=== PATIENT | female | born 2000 | race American Indian/Alaskan Native ===

== ENCOUNTER 2021-01-11 02:47 | Observation (INO) ==
[2021-01-11] MEDS ORDERED: SODIUM CHLORIDE 0.9% 1000ML 1,000 ML IV ONE ×2 (03:09→06:37)
[2021-01-11] MEDS ORDERED: ONDANSETRON INJ 2 MG/ML 2 ML VIAL IV STA (03:40)
[2021-01-11 04:16] LABS: Alanine Aminotransferase 30 U/L (12-78); Albumin Level 4.2 gm/dl (3.4-5.0); Aspartate Aminotransferase 25 U/L (15-37); BUN Creatinine Ratio 17.1 (10-20); Blood Urea Nitrogen 14 mg/dl (7-18); Calcium 8.4 mg/dl (8.5-10.1); Carbon Dioxide 23 mmol/L (21-32); Chloride 114 mmol/L (98-107); Est GFR (African American) 125.8; Est GFR (Non-African American) 108.5; Glucose 154 mg/dl (70-99); Potassium 3.6 mmol/L (3.5-5.1); Sodium 144 mmol/L (136-145)
[2021-01-11 04:19] LABS: Albumin Globulin Ratio 1.1 (0.9-2); Alkaline Phosphatase 140 U/L (45-117); Bilirubin,Total 0.2 mg/dl (0.2-1); Globulin 3.9 gm/dl (2.5-4.0); Total Protein 8.1 gm/dl (6.4-8.2)
[2021-01-11 04:49] LABS: Basophils # (auto) 0.04 K/uL (0-0.2); Basophils % (auto) 0.5 %; Eosinophils # (auto) 0.01 K/uL (0-0.5); Eosinophils % (auto) 0.1 %; Hematocrit (blood only) 41.7 % (37-47); Hemoglobin 14.3 g/dL (12.0-16.0); Immature Granulocytes # (auto) 0.02 K/uL (0.00-0.02); Immature Granulocytes % (auto) 0.3 %; Lymphocytes # (auto) 2.03 K/uL (1.2-3.4); Lymphocytes % (auto) 27.3 %; Mean Corpuscular Hemoglobin 30.8 pg (25-34); Mean Corpuscular Hgb Conc 34.3 g/dL (32-36); Mean Corpuscular Volume 89.7 fL (80-100); Mean Platelet Volume 9.6 fL (7.4-10.4); Monocytes # (auto) 0.26 K/uL (0.11-0.59); Monocytes % (auto) 3.5 %; Neutrophils # (auto) 5.07 K/uL (1.4-6.5); Neutrophils % (auto) 68.3 %; Platelet Count 408 K/uL (130-400); RDW Coefficient of Variation 12.2 % (11.5-14.5); Red Blood Count 4.65 M/uL (4.2-5.4); White Blood Count 7.43 K/uL (4.8-10.8)
[2021-01-11 05:07] LABS: Amphetamines+Metham, Urine Neg (Neg); Barbiturates, Urine Neg (Neg); Benzodiazepine, Urine Neg (Neg); Cocaine, Urine Neg (Neg); MDMA (Ecstacy), Urine Neg (Neg); Methadone, Urine Neg (Neg); Opiate, Urine Neg (Neg); Phencyclidine, Urine Neg (Neg)
--- NOTE | 2021-01-11 05:40 | Emergency Department Note ---
Impression & Plan Acute alteration in mental status, Alcohol intoxication, Hypoglycemia ED Provider Note NAME: LORE CHARLTON AGE: 20 SEX: F ARRIVES VIA: Ambulance INFORMANT: Patient, the patient's roommate ED PROVIDER(S): Talya Box DO CHIEF COMPLAINT: Alcohol intoxication and hypoglycemia PLAN: Disposition: [facility] Condition: Stable MEDICAL DECISION MAKING: This is a 20-year-old female patient brought to the emergency department after consuming too much alcohol. The patient had an episode of hypoglycemia as she is a diabetic. Her roommate noted her sugar to be less than 40. She was encouraged to drink apple juice and the sugar was rechecked and found to be 240. However, the patient remained confused with an altered mental status and was not recognizing people. EMS was called and she was transported here. Patient's alcohol was 144. CT scan of the brain was unremarkable. Patient remained with an altered mental status and had intermittent episodes of unresponsiveness and tachycardia. I discussed the case with the [facility] hospitalist and they will evaluate for further management. Triage Nursing notes reviewed and agree them. Additional history obtained from EMS and the patient's roommate Vital Signs: reviewed and remarkable for tachycardia Differential diagnosis: DKA, seizure, drug intoxication, hypoglycemia, head injury, alcohol overdose ER treatment provided: IV normal saline Diagnostics interpreted by me: Cardiac Monitoring: Sinus tachycardia at 106 Laboratory studies: See below Imaging studies: As per stat rad CT head: No acute intracranial hemorrhage, edema or mass. No extra-axial fluid colle ction. No calvarial fracture. Mild chronic sinus disease. Orbits and mastoids are unremarkable. Cerumen in the right external auditory canal HPI: 20/F arrives for evaluation of alcohol intoxication and hypoglycemia. The patient had been out drinking wine with her friends gee. The patient is a diabetic. Upon arriving home, her friend was notified by her glucose monitor that her BSG was low. They encouraged the patient to drink apple juice. After doing so, she rechecked her blood sugar and it was 240. The friend became concerned that the blood sugar was low and now has become elevated. EMS was called and she was transported here. For EMS, the patient's blood sugar was 209. On arrival here in the emergency department it was 200. When I questioned the patient about the events of the evening, she simply states that she drank wine because she is on a liquid diet and she is upset because her friend made her eat food that is not good for her when they were downtown. She would not give any other details besides this. ROS: See above HPI for pertinent positives & negatives. A total of 10 systems reviewed and were otherwise negative. 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 She lives with roommates. HOME MEDICATIONS:Insulin ALLERGIES:Patient cannot remember VITALS:See Below PHYSICAL EXAMINATION: HEENT: Head - normocephalic and atraumatic Pupils are equal, round, and reactive to light. Extraocular eye muscles are intact, and sclera are anicteric. Nose - moist nasal mucosa without discharge. Mouth - moist buccal mucosa. Oropharynx is nonerythematous and there is no tonsillar exudate or edema noted. Neck: Supple; no thyromegaly or cervical lymphadenopathy Heart: Tachycardic rate and regular rhythm. There is a normal S1 and S2 with no murmurs, clicks, or gallops appreciated. Lungs: Clear to auscultation bilaterally with no wheezes, rales, or rhonchi. Abdomen: Soft, completely nontender, nondistended, with good bowel sounds. There are no palpable pulsatile masses or hepatosplenomegaly. There is no guarding, rigidity, or rebound noted. Extremities: No evidence of cyanosis, clubbing, or edema. There are easily palpable peripheral pulses. Skin: warm and dry with good turgor and no rashes. The patient's face is quite flushed and red ED COURSE: Times/Reassessments: 0250: Patient was evaluated in room a 12. A complete history and physical was performed. The patient was placed in the prone position to avoid aspiration. Order was placed for continuous cardiac monitoring. Patient was in a sinus tachycardia at 112. An IV lock was initiated and labs were drawn as above. The patient was bolused with 1 L of normal saline solution. The BSG will be checked every 30 minutes 0345: The patient was reevaluated at this time and was resting comfortably. Vitals were stable. 0430: I discussed the case with the patient's roommate who is now at the bedside. It seems that the patient does not recognize who the roommate is and this is quite alarming. The roommate was able to give a more detailed history of what happened this evening. She explains that the patient had been out drinking with a friend and when she returned home it seemed that she had an altered mental status. She was unable to recognize friends and her roommate. This alarmed the roommate and the roommate alerted the RA who then called 911. After this, they checked her blood sugar and found it to be low. Once they corrected h er blood sugar, she still did not recognize them. The roommate does confirm that the patient is supposed to be on all liquid diet because of a GI issue. Patient will go for CT scan of the brain to rule out any acute intracranial process. We will also collect a urine drug screen. The patient went on to have an episode of tachycardia and hypotension and appeared to be somewhat asleep in the bed. I could easily arouse her at that time but she stated that she felt unwell but could not further elaborate on her symptoms. At that time, she was still unable to recognize her roommate. She was able to give some more specific details about the events of the evening and could answer some more in-depth questions but still could not give some simple answers to questions that she should know the answers to. I recommended inpatient admission to the [facility] hospital[facility]. The patient was evaluated by Dr. Santana and at that time was refusing inpatient care. 0800:Dr. Santana and myself both spoke with the patient together with the roommate present. We reviewed all of our concerns with the patient and the roommate. The patient seemed to understand our concerns and decided that it wo uld be the responsible thing to contact her parents to discuss the ED visit. Mother agreed that the patient should stay in the hospital for additional work- up. Talya Box, Past Med/Surg History Medical History Diabetes mellitus type 1 Gastroparesis Family History Other No pertinent family history Social History Smoking Status: Never smoker Hx Alcohol Use: Yes Alcohol type: hard liquor Hx Substance Use: No Preferred Language: Bangladeshi Communication Ability: Effective Pigs Feet Cleaner Required: No Beliefs That Will Affect Care: None Current Living Situation: Other Current Living Situation Comment: dorm at [employer] Feels Safe at Home: Yes Assistive Devices: None Allergies Allergies Allergy/AdvReac Type Severity Reaction Status Date / Time Unable to Assess Allergy Verified 01/11/21 07:41 Home Meds Home Medications Medication Instructions Recorded Confirmed Lantus Solostar U-100 Insulin 6 unit SUBCUT DAILY 01/11/21 01/11/21 erythromycin 0 mg PO ACHS 01/11/21 01/11/21 insulin lispro [Humalog Moshe 2.5 unit SUBCUT TIDM 01/11/21 01/11/21 KwikPen U-100] Results & Data (ED) Vital Signs Vital Signs - 24 hr 01/11/21 07:30 01/11/21 08:00 01/11/21 08:30 Pulse Rate 116 H 108 H Pulse Rate from SpO2 Sensor 116 H 116 H 108 H Respiratory Rate 12 22 Blood Pressure 137/79 142/97 H 130/81 Blood Pressure Mean 98 112 97 Pulse Oximetry 98 96 96 01/11/21 09:00 01/11/21 09:30 01/11/21 10:00 Pulse Rate 101 H 115 H 108 H Pulse Rate from SpO2 Sensor 99 H 116 H 111 H Respiratory Rate 27 H 14 20 Blood Pressure 113/71 123/80 127/79 Blood Pressure Mean 85 94 95 Pulse Oximetry 95 97 96 01/11/21 10:30 Pulse Rate 103 H Pulse Rate from SpO2 Sensor 105 H Respiratory Rate 12 Blood Pressure 126/85 Blood Pressure Mean 98 Pulse Oximetry 95 Laboratory Data Result diagrams: 01/11/21 03:32 01/11/21 03:29 Lab Results 01/11/21 01/11/21 01/11/21 Range/Units 02:54 03:29 03:29 WBC (4.8-10.8) K/uL RBC (4.2-5.4) M/uL Hgb (12.0-16.0) g/dL Hct (37-47) % MCV (80-100) fL MCH (25-34) pg MCHC (32-36) g/dL RDW Std Deviation (36.4-46.3) fL RDW Coeff of Josefina (11.5-14.5) % Plt Count (130-400) K/uL MPV (7.4-10.4) fL Immature Gran % (Auto) % Neut % (Auto) % Lymph % (Auto) % Vernon % (Auto) % Eos % (Auto) % Baso % (Auto) % Neut # (Auto) (1.4-6.5) K/uL Lymph # (Auto) (1.2-3.4) K/uL Vernon # (Auto) (0.11-0.59) K/uL Eos # (Auto) (0-0.5) K/uL Baso # (Auto) (0-0.2) K/uL Immature Gran # (Auto) (0.00-0.02) K/uL D-Dimer (0-500) ug/L FEU VBG pH (7.36-7.41) VBG pCO2 (38-50) mmHg VBG pO2 mmHg VBG HCO3 mmol/L VBG O2 Saturation % VBG Base Excess mEq/L Barometric Pressure mm/Hg Sodium 144 (136-145) mmol/L Potassium 3.6 (3.5-5.1) mmol/L Chloride 114 H (98-107) mmol/L Carbon Dioxide 23 (21-32) mmol/L Anion Gap 7.0 (3-11) BUN 14 (7-18) mg/dl Creatinine 0.79 (0.6-1.2) mg/dl Est Cr Clr Drug Dosing Not Reportable Est GFR ( Amer) 125.8 Est GFR (Non-Af Amer) 108.5 BUN/Creatinine Ratio 17.1 (10-20) Glucose 154 H (70-99) mg/dl POC Glucose 200 H (70-99) mg/dl Lactate (0.4-2.0) mmol/L Calcium 8.4 L (8.5-10.1) mg/dl Total Bilirubin 0.2 (0.2-1) mg/dl AST 25 (15-37) U/L ALT 30 (12-78) U/L Alkaline Phosphatase 140 H (45-117) U/L Total Protein 8.1 (6.4-8.2) gm/dl Albumin 4.2 (3.4-5.0) gm/dl Globulin 3.9 (2.5-4.0) gm/dl Albumin/Globulin Ratio 1.1 (0.9-2) Prolactin ng/ml HCG, Qual (Negative) Salicylates (2.8-20) mg/dl Urine Opiates Screen (Neg) Ur Methadone, Qual (Neg) Acetaminophen (10-30) ug/ml Urine Barbiturates (Neg) Ur Phencyclidine (PCP) (Neg) U Amphetamin/Meth Scrn (Neg) MDMA (Ecstasy) Screen (Neg) U Benzodiazepines Scrn (Neg) Ur Cocaine Metabolite (Neg) U Marijuana (THC) Screen (Neg) Ethyl Alcohol mg/dL 144.0 H (0-3) mg/dl COVID-19 Eval Order SARS-CoV-2, RNA, NAAT (NEGATIVE) 01/11/21 01/11/21 01/11/21 Range/Units 03:30 03:32 03:32 WBC 7.43 (4.8-10.8) K/uL RBC 4.65 (4.2-5.4) M/uL Hgb 14.3 (12.0-16.0) g/dL Hct 41.7 (37-47) % MCV 89.7 (80-100) fL MCH 30.8 (25-34) pg MCHC 34.3 (32-36) g/dL RDW Std Deviation 39.0 (36.4-46.3) fL RDW Coeff of Josefina 12.2 (11.5-14.5) % Plt Count 408 H (130-400) K/uL MPV 9.6 (7.4-10.4) fL Immature Gran % (Auto) 0.3 % Neut % (Auto) 68.3 % Lymph % (Auto) 27.3 % Vernon % (Auto) 3.5 % Eos % (Auto) 0.1 % Baso % (Auto) 0.5 % Neut # (Auto) 5.07 (1.4-6.5) K/uL Lymph # (Auto) 2.03 (1.2-3.4) K/uL Vernon # (Auto) 0.26 (0.11-0.59) K/uL Eos # (Auto) 0.01 (0-0.5) K/uL Baso # (Auto) 0.04 (0-0.2) K/uL Immature Gran # (Auto) 0.02 (0.00-0.02) K/uL D-Dimer < 190 (0-500) ug/L FEU VBG pH (7.36-7.41) VBG pCO2 (38-50) mmHg VBG pO2 mmHg VBG HCO3 mmol/L VBG O2 Saturation % VBG Base Excess mEq/L Barometric Pressure mm/Hg Sodium (136-145) mmol/L Potassium (3.5-5.1) mmol/L Chloride (98-107) mmol/L Carbon Dioxide (21-32) mmol/L Anion Gap (3-11) BUN (7-18) mg/dl Creatinine (0.6-1.2) mg/dl Est Cr Clr Drug Dosing Est GFR ( Amer) Est GFR (Non-Af Amer) BUN/Creatinine Ratio (10-20) Glucose (70-99) mg/dl POC Glucose 160 H (70-99) mg/dl Lactate (0.4-2.0) mmol/L Calcium (8.5-10.1) mg/dl Total Bilirubin (0.2-1) mg/dl AST (15-37) U/L ALT (12-78) U/L Alkaline Phosphatase (45-117) U/L Total Protein (6.4-8.2) gm/dl Albumin (3.4-5.0) gm/dl Globulin (2.5-4.0) gm/dl Albumin/Globulin Ratio (0.9-2) Prolactin ng/ml HCG, Qual (Negative) Salicylates (2.8-20) mg/dl Urine Opiates Screen (Neg) Ur Methadone, Qual (Neg) Acetaminophen (10-30) ug/ml Urine Barbiturates (Neg) Ur Phencyclidine (PCP) (Neg) U Amphetamin/Meth Scrn (Neg) MDMA (Ecstasy) Screen (Neg) U Benzodiazepines Scrn (Neg) Ur Cocaine Metabolite (Neg) U Marijuana (THC) Screen (Neg) Ethyl Alcohol mg/dL (0-3) mg/dl COVID-19 Eval Order SARS-CoV-2, RNA, NAAT (NEGATIVE) 01/11/21 01/11/21 01/11/21 Range/Units 03:32 03:32 04:02 WBC (4.8-10.8) K/uL RBC (4.2-5.4) M/uL Hgb (12.0-16.0) g/dL Hct (37-47) % MCV (80-100) fL MCH (25-34) pg MCHC (32-36) g/dL RDW Std Deviation (36.4-46.3) fL RDW Coeff of Josefina (11.5-14.5) % Plt Count (130-400) K/uL MPV (7.4-10.4) fL Immature Gran % (Auto) % Neut % (Auto) % Lymph % (Auto) % Vernon % (Auto) % Eos % (Auto) % Baso % (Auto) % Neut # (Auto) (1.4-6.5) K/uL Lymph # (Auto) (1.2-3.4) K/uL Vernon # (Auto) (0.11-0.59) K/uL Eos # (Auto) (0-0.5) K/uL Baso # (Auto) (0-0.2) K/uL Immature Gran # (Auto) (0.00-0.02) K/uL D-Dimer (0-500) ug/L FEU VBG pH (7.36-7.41) VBG pCO2 (38-50) mmHg VBG pO2 mmHg VBG HCO3 mmol/L VBG O2 Saturation % VBG Base Excess mEq/L Barometric Pressure mm/Hg Sodium (136-145) mmol/L Potassium (3.5-5.1) mmol/L Chloride (98-107) mmol/L Carbon Dioxide (21-32) mmol/L Anion Gap (3-11) BUN (7-18) mg/dl Creatinine (0.6-1.2) mg/dl Est Cr Clr Drug Dosing Est GFR ( Amer) Est GFR (Non-Af Amer) BUN/Creatinine Ratio (10-20) Glucose (70-99) mg/dl POC Glucose 165 H (70-99) mg/dl Lactate (0.4-2.0) mmol/L Calcium (8.5-10.1) mg/dl Total Bilirubin (0.2-1) mg/dl AST (15-37) U/L ALT (12-78) U/L Alkaline Phosphatase (45-117) U/L Total Protein (6.4-8.2) gm/dl Albumin (3.4-5.0) gm/dl Globulin (2.5-4.0) gm/dl Albumin/Globulin Ratio (0.9-2) Prolactin 12.33 ng/ml HCG, Qual Negative (Negative) Salicylates (2.8-20) mg/dl Urine Opiates Screen (Neg) Ur Methadone, Qual (Neg) Acetaminophen (10-30) ug/ml Urine Barbiturates (Neg) Ur Phencyclidine (PCP) (Neg) U Amphetamin/Meth Scrn (Neg) MDMA (Ecstasy) Screen (Neg) U Benzodiazepines Scrn (Neg) Ur Cocaine Metabolite (Neg) U Marijuana (THC) Screen (Neg) Ethyl Alcohol mg/dL (0-3) mg/dl COVID-19 Eval Order SARS-CoV-2, RNA, NAAT (NEGATIVE) 01/11/21 01/11/21 01/11/21 Range/Units 04:35 04:40 06:38 WBC (4.8-10.8) K/uL RBC (4.2-5.4) M/uL Hgb (12.0-16.0) g/dL Hct (37-47) % MCV (80-100) fL MCH (25-34) pg MCHC (32-36) g/dL RDW Std Deviation (36.4-46.3) fL RDW Coeff of Josefina (11.5-14.5) % Plt Count (130-400) K/uL MPV (7.4-10.4) fL Immature Gran % (Auto) % Neut % (Auto) % Lymph % (Auto) % Vernon % (Auto) % Eos % (Auto) % Baso % (Auto) % Neut # (Auto) (1.4-6.5) K/uL Lymph # (Auto) (1.2-3.4) K/uL Vernon # (Auto) (0.11-0.59) K/uL Eos # (Auto) (0-0.5) K/uL Baso # (Auto) (0-0.2) K/uL Immature Gran # (Auto) (0.00-0.02) K/uL D-Dimer (0-500) ug/L FEU VBG pH (7.36-7.41) VBG pCO2 (38-50) mmHg VBG pO2 mmHg VBG HCO3 mmol/L VBG O2 Saturation % VBG Base Excess mEq/L Barometric Pressure mm/Hg Sodium (136-145) mmol/L Potassium (3.5-5.1) mmol/L Chloride (98-107) mmol/L Carbon Dioxide (21-32) mmol/L Anion Gap (3-11) BUN (7-18) mg/dl Creatinine (0.6-1.2) mg/dl Est Cr Clr Drug Dosing Est GFR ( Amer) Est GFR (Non-Af Amer) BUN/Creatinine Ratio (10-20) Glucose (70-99) mg/dl POC Glucose 167 H 195 H (70-99) mg/dl Lactate (0.4-2.0) mmol/L Calcium (8.5-10.1) mg/dl Total Bilirubin (0.2-1) mg/dl AST (15-37) U/L ALT (12-78) U/L Alkaline Phosphatase (45-117) U/L Total Protein (6.4-8.2) gm/dl Albumin (3.4-5.0) gm/dl Globulin (2.5-4.0) gm/dl Albumin/Globulin Ratio (0.9-2) Prolactin ng/ml HCG, Qual (Negative) Salicylates (2.8-20) mg/dl Urine Opiates Screen Neg (Neg) Ur Methadone, Qual Neg (Neg) Acetaminophen (10-30) ug/ml Urine Barbiturates Neg (Neg) Ur Phencyclidine (PCP) Neg (Neg) U Amphetamin/Meth Scrn Neg (Neg) MDMA (Ecstasy) Screen Neg (Neg) U Benzodiazepines Scrn Neg (Neg) Ur Cocaine Metabolite Neg (Neg) U Marijuana (THC) Screen Neg (Neg) Ethyl Alcohol mg/dL (0-3) mg/dl COVID-19 Eval Order SARS-CoV-2, RNA, NAAT (NEGATIVE) 01/11/21 01/11/21 01/11/21 Range/Units 06:52 07:16 07:16 WBC (4.8-10.8) K/uL RBC (4.2-5.4) M/uL Hgb (12.0-16.0) g/dL Hct (37-47) % MCV (80-100) fL MCH (25-34) pg MCHC (32-36) g/dL RDW Std Deviation (36.4-46.3) fL RDW Coeff of Josefina (11.5-14.5) % Plt Count (130-400) K/uL MPV (7.4-10.4) fL Immature Gran % (Auto) % Neut % (Auto) % Lymph % (Auto) % Vernon % (Auto) % Eos % (Auto) % Baso % (Auto) % Neut # (Auto) (1.4-6.5) K/uL Lymph # (Auto) (1.2-3.4) K/uL Vernon # (Auto) (0.11-0.59) K/uL Eos # (Auto) (0-0.5) K/uL Baso # (Auto) (0-0.2) K/uL Immature Gran # (Auto) (0.00-0.02) K/uL D-Dimer (0-500) ug/L FEU VBG pH (7.36-7.41) VBG pCO2 (38-50) mmHg VBG pO2 mmHg VBG HCO3 mmol/L VBG O2 Saturation % VBG Base Excess mEq/L Barometric Pressure mm/Hg Sodium (136-145) mmol/L Potassium (3.5-5.1) mmol/L Chloride (98-107) mmol/L Carbon Dioxide (21-32) mmol/L Anion Gap (3-11) BUN (7-18) mg/dl Creatinine (0.6-1.2) mg/dl Est Cr Clr Drug Dosing Est GFR ( Amer) Est GFR (Non-Af Amer) BUN/Creatinine Ratio (10-20) Glucose (70-99) mg/dl POC Glucose (70-99) mg/dl Lactate (0.4-2.0) mmol/L Calcium (8.5-10.1) mg/dl Total Bilirubin (0.2-1) mg/dl AST (15-37) U/L ALT (12-78) U/L Alkaline Phosphatase (45-117) U/L Total Protein (6.4-8.2) gm/dl Albumin (3.4-5.0) gm/dl Globulin (2.5-4.0) gm/dl Albumin/Globulin Ratio (0.9-2) Prolactin ng/ml HCG, Qual (Negative) Salicylates < 1.7 L (2.8-20) mg/dl Urine Opiates Screen (Neg) Ur Methadone, Qual (Neg) Acetaminophen < 2 L (10-30) ug/ml Urine Barbiturates (Neg) Ur Phencyclidine (PCP) (Neg) U Amphetamin/Meth Scrn (Neg) MDMA (Ecstasy) Screen (Neg) U Benzodiazepines Scrn (Neg) Ur Cocaine Metabolite (Neg) U Marijuana (THC) Screen (Neg) Ethyl Alcohol mg/dL (0-3) mg/dl COVID-19 Eval [facility] SARS-[facility]-2, RNA, NAAT NEGATIVE (NEGATIVE) 01/11/21 01/11/21 Range/Units 07:30 07:30 WBC (4.8-10.8) K/uL RBC (4.2-5.4) M/uL Hgb (12.0-16.0) g/dL Hct (37-47) % MCV (80-100) fL MCH (25-34) pg MCHC (32-36) g/dL RDW Std Deviation (36.4-46.3) fL RDW Coeff of Josefina (11.5-14.5) % Plt Count (130-400) K/uL MPV (7.4-10.4) fL Immature Gran % (Auto) % Neut % (Auto) % Lymph % (Auto) % Vernon % (Auto) % Eos % (Auto) % Baso % (Auto) % Neut # (Auto) (1.4-6.5) K/uL Lymph # (Auto) (1.2-3.4) K/uL Vernon # (Auto) (0.11-0.59) K/uL Eos # (Auto) (0-0.5) K/uL Baso # (Auto) (0-0.2) K/uL Immature Gran # (Auto) (0.00-0.02) K/uL D-Dimer (0-500) ug/L FEU VBG pH 7.41 (7.36-7.41) VBG pCO2 35 L (38-50) mmHg VBG pO2 51 mmHg VBG HCO3 22 mmol/L VBG O2 Saturation 84.0 % VBG Base Excess -2.0 mEq/L Barometric Pressure 729.1 mm/Hg Sodium (136-145) mmol/L Potassium (3.5-5.1) mmol/L Chloride (98-107) mmol/L Carbon Dioxide (21-32) mmol/L Anion Gap (3-11) BUN (7-18) mg/dl Creatinine (0.6-1.2) mg/dl Est Cr Clr Drug Dosing Est GFR ( Amer) Est GFR (Non-Af Amer) BUN/Creatinine Ratio (10-20) Glucose (70-99) mg/dl POC Glucose (70-99) mg/dl Lactate 1.7 (0.4-2.0) mmol/L Calcium (8.5-10.1) mg/dl Total Bilirubin (0.2-1) mg/dl AST (15-37) U/L ALT (12-78) U/L Alkaline Phosphatase (45-117) U/L Total Protein (6.4-8.2) gm/dl Albumin (3.4-5.0) gm/dl Globulin (2.5-4.0) gm/dl Albumin/Globulin Ratio (0.9-2) Prolactin ng/ml HCG, Qual (Negative) Salicylates (2.8-20) mg/dl Urine Opiates Screen (Neg) Ur Methadone, Qual (Neg) Acetaminophen (10-30) ug/ml Urine Barbiturates (Neg) Ur Phencyclidine (PCP) (Neg) U Amphetamin/Meth Scrn (Neg) MDMA (Ecstasy) Screen (Neg) U Benzodiazepines Scrn (Neg) Ur Cocaine Metabolite (Neg) U Marijuana (THC) Screen (Neg) Ethyl Alcohol mg/dL (0-3) mg/dl COVID-19 Eval Order SARS-CoV-2, RNA, NAAT (NEGATIVE) Administered Medications Discontinued Medications Gadobutrol (Gadobutrol 65ml Vial) 6 ml IV ONCE ONE Stop: 01/11/21 13:28 Last Admin: 01/11/21 13:27 Dose: 6 ml Documented by: [id number] Sodium Chloride (Nss 1000ml) 1,000 mls @ 999 mls/hr IV .Q1H1M ONE Stop: 01/11/21 04:09 Last Infusion: 01/11/21 04:43 Dose: 0 mls/hr Documented by: [id number] Admin: 01/11/21 03:36 Dose: 999 mls/hr Documented by: [id number] Sodium Chloride (Nss 1000ml) 1,000 mls @ 999 mls/hr IV .Q1H1M ONE Stop: 01/11/21 07:37 Last Infusion: 01/11/21 08:30 Dose: 0 mls/hr Documented by: [id number] Admin: 01/11/21 06:46 Dose: 999 mls/hr Documented by: [id number] Multivitamins 10 ml/ Thiamine HCl 100 mg/ Folic Acid 1 mg/Sodium Chloride 1,011.2 mls @ 1,011.2 mls/hr IV .Q1H ONE Stop: 01/11/21 13:44 Last Infusion: 01/11/21 15:04 Dose: 0 mls/hr Documented by: [id number] Admin: 01/11/21 14:00 Dose: 1,011.2 mls/hr Documented by: [id number] Insulin Glargine (Insulin Glargine Solostar 100 Units/Ml 3 Ml Pen) 6 units SC DAILY@1000 MARIO; Protocol Stop: 02/10/21 12:59 Last Admin: 01/11/21 14:13 Dose: 6 units Documented by: [id number] Cosigned by: [id number] Insulin Human Lispro (Insulin Human Lispro (Humalog) 100 Units/Ml Vial) 0 units SC ACHS MARIO; Protocol Stop: 02/10/21 12:59 Last Admin: 01/11/21 18:05 Dose: 2 units Documented by: [id number] Cosigned by: [id number] Admin: 01/11/21 14:48 Dose: 2 units Documented by: [id number] Cosigned by: [id number] Ondansetron HCl (Ondansetron Inj 2 Mg/Ml 2 Ml Vial) 4 mg IV NOW STA Stop: 01/11/21 03:41 Last Admin: 01/11/21 03:45 Dose: 4 mg Documented by: [id number] Discharge Plan Visit Data Chief Complaint: Alcohol Intoxication Stated Complaint: DIABETIC/ALCOHOL INTOXICATION ED Provider: Talya Box Discharge Problem: Acute alteration in mental status, Alcohol intoxication, Hypoglycemia Patient Disposition: Admitted As Inpatient Discharge Instructions Interventions: ED Discharge Assessment Last Done: 01/11/21 11:40 Discharge Problem: Alcohol intoxication Qualifiers: Complication of substance-induced condition: with delirium Qualified Code(s): F10.921 - Alcohol use, unspecified with intoxication delirium
--- NOTE | 2021-01-11 06:35 | CT Scan Report ---
CT OF THE HEAD WITHOUT CONTRAST CLINICAL HISTORY: Altered mental status. COMPARISON STUDY: No previous studies for comparison. CT DOSE: 614.27 mGy.cm TECHNIQUE: Helical axial images of the head were obtained without IV contrast. Automated exposure con trol was utilized for the study. A dose lowering technique was utilized adhering to the principles o f ALARA. FINDINGS: No acute intracranial hemorrhage, midline shift or mass effect is present. The ventricular system is unremarkable. The basal cisterns are patent. No extra-axial collections are present. There are no findings to suggest acute dural sinus thrombosis or acute territorial infarct. No significant calvarial abnormalities are present. There is mild ethmoid and maxillary sinus mucosal thickening. Po sterior right mastoid air cells are opacified. IMPRESSION: No acute intracranial findings. ACT 112: Negative or not required by law. Electronically signed by: Jax Weir M.D. 01/11/2021 6:34 AM
[2021-01-11 07:01] LABS: D Dimer < 190 ug/L FEU (0-500)
[2021-01-11 07:21] LABS: Pregnancy Test, Serum Negative (Negative)
[2021-01-11 07:26] LABS: Acetaminophen < 2 ug/ml (10-30); Salicylate < 1.7 mg/dl (2.8-20)
[2021-01-11 07:41] LABS: pH VBG 7.41 (7.36-7.41)
--- NOTE | 2021-01-11 10:42 | Pharmacy Report ---
Pharmacy Glycemic Short Note 2 - Date of Service January 11, 2021 - Glycemic Short BSG Results (Last 24 hours): 01/11/21 01/11/21 01/11/21 02:54 03:29 03:30 Glucose 154 H POC Glucose 200 H 160 H 01/11/21 01/11/21 01/11/21 04:02 04:35 06:38 Glucose POC Glucose 165 H 167 H 195 H OUTPATIENT ANTIDIABETIC REGIMEN: * Lantus 6 units SQ daily at 1000 * Humalog Moshe Pen bolus with meals per parameters below- uses a MAX of 2.5 units per bolus. Because this is her max dose she will sometimes bolus for high BSG and then recheck her BSG in 1-2hrs (via cgm or POC) and re-bolus again if BSG not decreasing. * SF= 50mg/dl/unit for BSGs above 140 mg/dl * Carb ratio = 1 unit for every 25g CHO consumed * Uses a Dexcom continuous glucose monitor (cgm)- last changed 2 days ago * Does not know her recent A1c - thinks it will be about 7.5-8% based on her dexcom average BSG ~ 179 mg/dl SUBJECTIVE: * Met with patient in ED room A12B this AM per the request of Dr Jus Santana. * Pt was diagnosed with Type 1 diabetes last Nov 2019. Had symptoms of increased hunger, thirst, and urination and saw her PCP who tested her for diabetes and sent her to the hospital. She was admitted for ~5 days for mild DKA and started on SQ basal bolus insulin regimen. She continued on this insulin regimen for about a month. She was able to come off of insulin from December 2019 - February 2020 during her honeymoon period. She restarted insulin in February and BSGs were well controlled over the summer. * Unfortunately patient got COVID in July 2020 and since then her BSGs have been elevated and erratic. * Pt sees both an custodial manager (unsure of their name - starts with a "Z") and a clinical social work therapist (unsure of their name) at [facility] in [place]. * Pt is being worked up for gastroparesis by outpatient GI. She has been eating a liquid diet (protein shakes) and bland "BRAT" diet (mostly rice, bread, bananas, etc) for the last week. Just added chicken to her diet a day or two ago. She takes erythromycin for gastroparesis but this was just started. Started at TID dosing and just increased to QID per GI earlier this week. * Pt typically has lows just prior to dinner. * Pt was out drinking wine with a friend last night. Did have a calzone late last evening so she is not sure why or how her BSG was LOW overnight. She thinks that she bolused 2 units last night with the calzone but doesn't remember that well. She said that she did throw up. Possible that she had hypo event from alcohol + bolusing and then throwing up. ASSESSMENT/RECOMMENDATIONS: * Recommend continuing cgm inpatient; however, patient will also need POC BSGs ACHS at a minimum. Pt is agreeable to this. * Recommend drawing A1c * Consider Shirt Folder consult (pt is agreeable to this) * Recommend Lantus 6 units Sq daily @ 1000 * Recommend Humalog (not NovoLog) ACHS per the following parameters * Goal range 100-140 mg/dl * CF = 50 mg/dl/unit * CR = 1 unit for every 25g CHO consumed. * If BSGs elevated; recommend giving 2 units of Humalog and re-checking BSG in 1-2 hrs. May re-bolus 1-2 units if BSGs not trending downwards. * We discussed using REGULAR insulin for meal time coverage as this is preferred with gastroparesis. However, didn't want to introduce anything new during this workup. *
[2021-01-11] MEDS ORDERED: DEXTROSE 50% 50 ML SYRINGE IV PRN (12:05)
[2021-01-11] MEDS ORDERED: GLUCOSE 40% GEL 15 GM TUBE PO PRN (12:05)
[2021-01-11] MEDS ORDERED: INSULIN ASPART 100 UNITS/ML 3 ML PEN SC SCH (12:05)
[2021-01-11] MEDS ORDERED: ONDANSETRON INJ 2 MG/ML 2 ML VIAL IV PRN (12:05)
[2021-01-11] MEDS ORDERED: GLUCOSE 10 TABS/TUBE PO PRN (12:05)
[2021-01-11] MEDS ORDERED: CARBOHYDRATES FOR HYPOGLYCEMIA PO PRN (12:05)
[2021-01-11] MEDS ORDERED: GLUCAGON FOR INJ 1 MG VIAL SQ PRN (12:05)
[2021-01-11] MEDS ORDERED: PHARMACY GLYCEMIC MGMT CONSULT PRN (12:24)
[2021-01-11] MEDS ORDERED: MULTI-VITAMIN INFUSION 10 ML, THIAMINE HCL 100 MG, FOLIC ACID 1 MG in SODIUM CHLORIDE 0... IV ONE (12:45)
[2021-01-11] MEDS ORDERED: INSULIN GLARGINE SOLOSTAR 100 UNITS/ML 3 ML PEN SC SCH (13:00)
[2021-01-11] MEDS ORDERED: GADOBUTROL 65ML VIAL IV ONE (13:27)
--- NOTE | 2021-01-11 13:38 | Magnetic Resonance Report ---
MRI OF THE BRAIN WITHOUT AND WITH IV CONTRAST CLINICAL HISTORY: Possible seizure CONFUSION, DIZZINESS. FILLING OF A HAZE. COMPARISON STUDY: CT scan dated 01/11/2021 TECHNIQUE: MRI of the brain was performed from the vertex to the skull base utilizing various T1 and T2 weighted sequences. Following the IV administration of 6 mL of Gadavist contrast, additional enhan asher images were obtained. FINDINGS: Sagittal T1, axial diffusion, proton density and T2 weighted axial, coronal FLAIR, and pre and post a xial T1-weighted images were acquired. These were supplemented with post gadolinium coronal T1 weight ed images. No intra or extra-axial mass lesions are visualized. Axial diffusion-weighted images reveal no evidence of acute or subacute infarction. There is no evidence of ventricular dilatation. Proton density T2-weighted and FLAIR images reveal no significant intraparenchymal signal abnormaliti es. There is a right mastoid effusion. Inflammatory changes are also visualized within the ethmoid fronta l and maxillary sinuses. Clinical formations appear symmetric. There are no abnormal flow voids. There is no evidence of pathologic enhancement. IMPRESSION: 1. Right mastoid effusion. Mild inflammatory changes within the frontal ethmoid and maxillary sinuses . 2. Otherwise normal MRI of the brain. No evidence of intracranial mass. No evidence of acute or subac david infarction ACT 112: Negative or not required by law. Electronically signed by: Dameon Suh M.D. 01/11/2021 1:37 PM
--- NOTE | 2021-01-11 14:20 | History & Physical Report ---
Date of Service January 11, 2021 Assessment & Plan (1) Metabolic encephalopathy: In the context of alcohol intake, low blood sugar overnight, and a possible substance ingestion at a green party. - Ddx includes: * Seizure or even simple encephalopathy due to low blood sugar * Possible substance ingestion at a green party - Concerning diagnoses such as meningitis/encephalitis are exceptionally unlikely given lack of fever, lack of leukocytosis, no nuchal rigidity or headache, and spontaneously improving symptoms. - Discussed with Dr. Box, and we do not have the ability to test for substances such as GBL. Our testable Utox was negative. - MRI w/ and w/o contrast ordered for seizure protocol - Monitor telemetry - Monitor mental status (2) Diabetes mellitus type 1: Diagnosed with Type I diabetes in 08/2020. - Seen by glycemic pharmacist in the ED. Insulin regimen to match home dosage. - A1c pending - Diabetic counselor consulted (3) Gastroparesis: Follows with [facility]. Presently I think this is a presumptive diagnosis. Was on a liquid diet for the last few weeks, but this included Ensure and Glucerna, so I do not think she should be vitamin deficient. - Will allow her to eat/drink whatever is comfortable - Ordered a banana bag as initial IV fluids - Encourage a MVI ongoing for iron, folate, and thiamine (4) DVT prophylaxis: SCDs - Low DVT risk per admission calculator Admission and Anticipated Discharge Date Admission Date: January 11, 2021 History of Present Illness Primary Care Provider: NO PCP 20yo F w/ hx of DM1 and possible gastroparesis who presents with altered mental status. The evening is a bit hazy, but the patient reports going out with some friends and then to a different green party. She shared a bottle of wine, then possibly had some more drinks at a green party at the house/residence of an unknown person. She is not sure what drinks she had, but reports she didn't drink a "crazy amount" which she equates to >10 shots. However, there is a chance she drank something that was an unsupervised drink at the green party. When she got back home, she had memory issues and didn't recognize her roommates whom she has lived with all year. She was also laughing inappropriately and just acting bizarrely. At some point, her continuous glucose monitor alarmed that her blood sugar was in the 40s. Her friends gave her some apple juice and manually recheck her blood sugar and it was in the ~100. When she continued to have trouble with her memory, her friends called 06-27-. In the ED, she continued to have memory issues and had an episode where her heart transiently went to 150, then went back to the 110s. Of note, she has been on a liquid diet for the last few weeks due to possible gastroparesis. She follows with [facility] GI who think she may need an EGD at some point. She recently has been on a BRAT diet with plain bread and recently added chicken as well. Allergies Allergy/AdvReac Type Severity Reaction Status Date / Time Unable to Assess Allergy Verified 01/11/21 07:41 Home Medications Medication Instructions Recorded Confirmed Type erythromycin 0 mg PO ACHS 01/11/21 01/11/21 History insulin glargine [Lantus Solostar 6 unit SUBCUT DAILY 01/11/21 01/11/21 History U-100 Insulin] insulin lispro [Humalog Moshe 2.5 unit SUBCUT TIDM 01/11/21 01/11/21 History KwikPen U-100] Past Med/Surg History Medical History Diabetes mellitus type 1 Gastroparesis Family History Other No pertinent family history Social History Smoking Status: Never smoker Hx Alcohol Use: Yes Alcohol type: hard liquor Hx Substance Use: No Preferred Language: Kiswahili Communication Ability: Effective Turfgrass Technician Required: No Beliefs That Will Affect Care: None Current Living Situation: Other Current Living Situation Comment: dorm at [facility] Other Information That Helps Us Care for You: No Feels Safe at Home: Yes Safety Concerns: Feels Safe At This Time Assistive Devices: None Review of Systems Review of Systems: All systems reviewed & are unremarkable except as noted in HPI & below Physical Exam Constitutional: WD/WN, vitals as above Eyes: EOM intact bilaterally; no conjunctival abnormality ENMT: external ear and nose normal, oropharynx normal Neck: trachea midline, no thyromegaly normal visual inspection Respiratory: normal respiratory effort, lungs clear to auscultation no respiratory distress Cardiovascular: RRR, no murmur, no edema Gastrointestinal (Abdomen): Inspection/Auscultation: abdomen normal to inspection; abdomen not distended Musculoskeletal: no cyanosis or clubbing, extremities motor strength 5/5 Skin: no rashes, warm and dry Neurologic: moves all extremities and awake Psychiatric: Orientation: alert, oriented to person and cooperative Speech: + abnormal rate/rhythm/volume of speech (Slow, halting speech) Results & Data Results & Data ([facility]) Vital Signs (Past 12 Hours) Vital Signs Temp Pulse Pulse Resp BP BP Pulse Ox 01/11/21 12:48 90 01/11/21 12:13 36.8 C 108 H 20 135/95 96 01/11/21 11:40 109 H 18 125/79 97 01/11/21 11:30 91 H 14 125/79 94 01/11/21 11:00 110 H 15 136/83 96 01/11/21 10:30 103 H 12 126/85 95 01/11/21 10:00 108 H 20 127/79 96 01/11/21 09:30 115 H 14 123/80 97 01/11/21 09:00 101 H 27 H 113/71 95 01/11/21 08:30 108 H 22 130/81 96 01/11/21 08:00 142/97 H 96 01/11/21 07:30 116 H 12 137/79 98 01/11/21 07:15 117 H 18 132/85 97 01/11/21 07:00 113 H 17 132/85 99 01/11/21 06:30 128/85 97 01/11/21 06:00 97/56 L 100 01/11/21 05:30 110/68 97 01/11/21 05:01 115 H 122/79 97 01/11/21 04:30 124 H 18 118/96 100 01/11/21 04:00 105 H 15 107/77 98 01/11/21 03:34 108 H 16 110/66 95 01/11/21 03:01 107 H 17 125/88 96 01/11/21 02:57 36.5 C 109 H 14 140/84 95 Code Status & VTE Plan VTE Prophylaxis Plan VTE Prophylaxis will be ordered: Yes PG Care Time/CCT Total # of Minutes Spent Total Time Spent with Patient: Total time spent is greater than 50% in coordination of care (as documented) at patient's floor/unit and/or counseling patient: Coding Level of Care Code 94474 OBS Care - Level 3 Diagnoses Metabolic encephalopathy G93.41 Diabetes mellitus type 1 E10.9 Gastroparesis K31.84 DVT prophylaxis Z29.9
[2021-01-11] MEDS: INSULIN HUMAN LISPRO (humaLOG) 100 UNITS/ML VIAL SC SCH ×2 (14:48→18:05)
--- NOTE | 2021-01-11 17:13 | Discharge Summary ---
Date of Service January 11, 2021 Admission HPI Per Admitting Provider 20yo F w/ hx of DM1 and possible gastroparesis who presents with altered mental status. The evening is a bit hazy, but the patient reports going out with some friends and then to a different alliance party. She shared a bottle of wine, then possibly had some more drinks at a alliance party at the house/residence of an unknown person. She is not sure what drinks she had, but reports she didn't drink a "crazy amount" which she equates to >10 shots. However, there is a chance she drank something that was an unsupervised drink at the alliance party. When she got back home, she had memory issues and didn't recognize her roommates whom she has lived with all year. She was also laughing inappropriately and just acting bizarrely. At some point, her continuous glucose monitor alarmed that her blood sugar was in the 40s. Her friends gave her some apple juice and manually recheck her blood sugar and it was in the ~100. When she continued to have trouble with her memory, her friends called 9--1. In the ED, she continued to have memory issues and had an episode where her heart transiently went to 150, then went back to the 110s. Of note, she has been on a liquid diet for the last few weeks due to possible gastroparesis. She follows with [facility] GI who think she may need an EGD at some point. She recently has been on a BRAT diet with plain bread and recently added chicken as well. Principal Diagnosis Altered mental status - Hypoglycemia vs. possible seizure vs. unknown substance ingestion Discharge Exam Constitutional WD/WN, vitals as above Eyes EOM intact bilaterally; no conjunctival abnormality ENMT external ear and nose normal, oropharynx normal Neck trachea midline, no thyromegaly normal visual inspection Respiratory normal respiratory effort, lungs clear to auscultation no respiratory distress Cardiovascular RRR, no murmur, no edema Gastrointestinal (Abdomen) Inspection/Auscultation: abdomen normal to inspection; abdomen not distended Musculoskeletal no cyanosis or clubbing, extremities motor strength 5/5 Skin no rashes, warm and dry Neurologic moves all extremities and awake Psychiatric Orientation: alert, oriented to person and cooperative Speech: normal rate/rhythm/volume of speech Discharge Data Allergies Allergy/AdvReac Type Severity Reaction Status Date / Time Unable to Assess Allergy Verified 01/11/21 07:41 Ordered Studies 01/11/21 04:40 CT head/brain wo con Urgent 01/11/21 12:05 MR brain seizure wo/w con Stat Hospital Course (1) Metabolic encephalopathy: In the context of alcohol intake, low blood sugar overnight, and a possible substance ingestion at a alliance party. - Ddx includes: * Seizure or even simple encephalopathy due to low blood sugar * Possible substance ingestion at a alliance party - Concerning diagnoses such as meningitis/encephalitis are exceptionally unlikely given lack of fever, lack of leukocytosis, no nuchal rigidity or headache, and spontaneously improving symptoms. - Discussed with Dr. Box, and we do not have the ability to test for hung bstances such as GBL. Our testable Utox was negative. - MRI w/ and w/o contrast ordered for seizure protocol -> This was normal apart from some sinusitis which she correlated with some stuffy nose, but no pain or fever. - Monitored telemetry -> Sinus in the 90s during her admission - Monitor mental status -> Improving throughout the day. On discharge, endorsed some "fuzziness," but had normal recall, normal speech, normal memory apart from scattered overnight. - I do not think EEG will be beneficial in this context. If she had a seizure, it was likely due to low blood sugar, and I would therefore suspect that her EEG would be normal now that her sugars have stabilized. If this were to happen again, certain raises the concern for a primary seizure disorder and would pursue. (2) Diabetes mellitus type 1: Diagnosed with Type I diabetes in 08/2020. - Seen by glycemic pharmacist in the ED. Insulin regimen to match home dosage. - Diabetic counselor consulted - Will return to normal DM regimen as outpatient and follow up with her [facility] physicians. (3) Gastroparesis: Follows with [facility] GI. Presently I think this is a presumptive diagnosis. Was on a liquid diet for the last few weeks, but this included Ensure and Glucerna, so I do not think she should be vitamin deficient. - Will allow her to eat/drink whatever is comfortable - Ordered a banana bag as initial IV fluids - Encourage a MVI ongoing for iron, folate, and thiamine (4) DVT prophylaxis: SCDs - Low DVT risk per admission calculator Total Time Total Time Spent Total Time Spent (In Minutes): 35 Discharge Plan Discharge Items Patient Disposition: Home - Self-Care Reason For Visit: AMS Discharge Diagnosis: Altered mental status Activity: Resume your previous activity Non-emergency contact: Primary Care Provider and Forest And Conservation Worker Call non-emergency contact if: your symptoms worsen Follow-up/Referrals: PCP,NO [Primary Care Provider] - Diet: Carb Count or DM1 Addtl Attending Provider Instructions: Ms. Lopez, You were admitted to the hospital when you had a period of altered mental status overnight. This happened in the context of being out and possibly consuming something that was put in a drink. We also think possibly some blood sugar fluctuations could have contributed. There was some concern that your blood sugar got as low as 40 (though this was not what your continuous glucose monitor showed). We did an MRI of your brain which did not show any concerning findings such as a mass or anything like that. Please have your friends stay with you the next 24- 48 hours to be sure you are back to your normal state of health. If something like this happens again, you need to return to the hospital or contact your primary care doctor right away. Pending Studies at Discharge: No Stand-Alone Forms: [facility], Smoking Cessation Medications and DC Order Prescriptions: Continued Lantus Solostar U-100 Insulin 100 unit/mL (3 mL) Insulin Pen 6 unit SUBCUT DAILY RF: 0 insulin lispro [Humalog Moshe KwikPen U-100] 100 unit/mL Insulin Pen, Half- Unit 2.5 unit SUBCUT TIDM RF: 0 erythromycin 250 mg Capsule,Delayed Release(Dr/Ec) 0 mg PO ACHS RF: 0 Discharge Orders: Discharge Order (Routine); Ordered 01/11/21 Ordered By: Dillon Santana Admission Data Admit Date/Time: 01/11/21 10:49 Attending Provider: Dillon Santana Admit Provider: Dillon Santana Primary Care Provider: PCP,NO Coding Level of Care Code Admit/DC Same Day >8hr Level 3 Diagnoses Metabolic encephalopathy G93.41 Diabetes mellitus type 1 E10.9 Gastroparesis K31.84 DVT prophylaxis Z29.9
== END 2021-01-11 19:01 | disposition home or self-care (01) ==
LOC: EDBD → 2N 02:47 → MERGE 02:47 → ED 02:47 → 2N 11:40

== ENCOUNTER 2023-07-23 12:03 | Observation (INO) ==
[2023-07-23] MEDS ORDERED: SODIUM CHLORIDE 0.9% 500 ML IV STA (12:49)
[2023-07-23] MEDS ORDERED: KETOROLAC TROMETHAMINE 15 MG/ML VIAL IV STA (13:59)
--- NOTE | 2023-07-23 14:11 | CT Scan Report ---
CT abd pelvis wo con CLINICAL HISTORY: Recent kidney stone TECHNIQUE: Helical axial images of the abdomen and pelvis were obtained. Automated dose lowering tech niques and/or adjustment according to patient size were utilized for this exam. This exam was perfor med without intravenous contrast. CT DOSE: 506.24 mGy.cm COMPARISON: Comparison is made to CT abdomen pelvis 02/27/2022 FINDINGS: Lower chest: No acute abnormality. Liver: Unremarkable. No focal lesions are seen. Gallbladder and biliary tree: No calcified gallstones. Normal caliber wall. No intra- or extrahepatic biliary ductal dilation. Pancreas: Unremarkable, no focal lesions. Spleen: Unremarkable. Adrenals: Unremarkable. 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 No obstructive stone is seen bilaterally. Punctate calcification in the left superior kidney is again seen which was previously noted to be in association with a region of scarri ng. Bladder: Unremarkable. Reproductive organs: Unremarkable. Bowel: The appendix is normal. Lymph nodes Retroperitoneal: Subcentimeter lymph nodes are noted. Pelvic: Unremarkable. Mesenteric: Unremarkable. Peritoneum: Normal. Vessels: Unremarkable. Abdominal wall: Unremarkable. Bones: Unremarkable. IMPRESSION: 1. No acute abnormalities and in particular there is no evidence of obstructive stone. 2. 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 ACT 112: Negative or not required by law. Electronically signed by: Lb Arriaga M.D. 07/23/2023 2:10 PM
[2023-07-23 14:26] LABS: Basophils # (auto) 0.06 K/uL (0.00-0.20); Basophils % (auto) 0.3 %; Hematocrit (blood only) 44.5 % (37.0-47.0); Hemoglobin 15.1 g/dl (12.0-16.0); Immature Granulocytes # (auto) 0.15 K/uL (0.01-0.20); Immature Granulocytes % (auto) 0.8 %; Lymphocytes # (auto) 1.84 K/uL (1.20-3.40); Lymphocytes % (auto) 9.9 %; Mean Corpuscular Hemoglobin 31.1 pg (25.0-34.0); Mean Corpuscular Hgb Conc 33.9 g/dL (32.0-36.0); Mean Corpuscular Volume 91.6 fL (80.0-100.0); Mean Platelet Volume 9.5 fL (9.4-12.4); Monocytes # (auto) 1.83 K/uL (0.11-0.59); Monocytes % (auto) 9.9 %; Neutrophils # (auto) 14.69 K/uL (1.40-6.50); Neutrophils % (auto) 79.1 %; Platelet Count 394 K/uL (130-400); RDW Coefficient of Variation 12.2 % (11.5-14.5); RDW Standard Deviation 40.5 fL (36.4-46.3); Red Blood Count 4.86 M/uL (4.20-5.40); White Blood Count 18.57 K/ul (4.8-10.8)
[2023-07-23 15:32] LABS: Albumin Level 4.7 gm/dl (3.4-5.0); Bilirubin,Total 0.4 mg/dl (0.2-1.0); Calcium 9.6 mg/dl (8.6-10.3); Potassium 4.3 mmol/L (3.5-5.1)
[2023-07-23 15:38] LABS: Albumin Globulin Ratio 1.2 (0.9-2); BUN Creatinine Ratio 16.5 (10-20); Est GFR (African American) 113.5 ml/min; Est GFR (Non-African American) 97.9 ml/min; Globulin 3.9 gm/dl (2.5-4.0); Total Protein 8.6 gm/dl (6.0-8.3)
[2023-07-23] MEDS ORDERED: cefTRIAXone SODIUM 2,000 MG/70 ML BAG IV STA (17:02)
--- NOTE | 2023-07-23 17:51 | Emergency Department Note ---
Impression & Plan DKA (diabetic ketoacidosis), Acute flank pain ED Provider Note NAME: LORE CHARLTON AGE: 22 SEX: F : 2000 ARRIVES VIA: Walk-In INFORMANT: Patient ED PROVIDER(S): Orestes Wolf DO CHIEF COMPLAINT: right flank pain HPI: Patient is a 22-year-old female who is a type I diabetic who presents to the ER for right flank pain. She notes that she has had pain in her right back which has been present for the past week. She admits to dysuria, urgency, and frequency as well with it. No headache or change in vision. Does have some intermittent vomiting. She also admits to fevers which include night sweats. Patient notes that she has a type I diabetic and her blood sugars have not really been elevated as she notes that she is not eating. ADDITIONAL HISTORY OBTAINED: Per HPI Chronic Medical/Social Conditions Affecting Care: Per HPI PAST MEDICAL HISTORY:See Below PAST SURGICAL HISTORY:See Below FAMILY HISTORY:See Below SOCIAL HISTORY:See Below HOME MEDICATIONS:See Below ALLERGIES:See Below VITALS:See Below PHYSICAL EXAMINATION: GENERAL: Sitting up in bed, alert, slightly ill-appearing, disheveled EYE EXAM: normal conjunctiva. OROPHARYNX: normal and mucous membranes are moist NECK: supple, no nuchal rigidity, no adenopathy, non-tender LUNGS: Clear to auscultation. Normal chest wall mechanics HEART: Tachycardic, S1 normal and S2 normal ABDOMEN: abdomen soft, non-tender, normo-active bowel sounds, no masses, no rebound or guarding. BACK: Back is symmetrical on inspection and there is no deformity, no midline tenderness, + CVA tenderness on the right. UPPER EXTREMITIES: upper extremities are grossly normal. LOWER EXTREMITIES: No pitting edema. NEURO EXAM: Normal sensorium, cranial nerves II-XII grossly intact, normal spee ch, no gross weakness of arms, no gross weakness of legs. MEDICAL DECISION MAKING: Patient is a 22-year-old female who presents ER for above-stated complaint. IV was established blood work was obtained. External records reviewed as described below. Labs show leukocytosis of 18,000. No significant anemia. VBG with a pH of 7.23 and bicarb of 10. This consistent with DKA as she is gapped at 19. LFTs bilirubin was unremarkable. Blood sugar was elevated at 283. Urine with ketones. There is only 5-10 whites. No leukocytes or nitrites. There is no bacteria. I was concerned that she had Harry and consequently I covered her with 2 g of Rocephin. She given 2.5 L of fluids. She was updated bedside. 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 She was updated bedside and discussed the case with Dr. Maynard for further evaluation management treatment. She was placed on insulin drip while in the ER. External Records Reviewed: Last admission to the hospital was reviewed and confirm she is a diabetic Consults/Care Managements Discussions: Per HPI Triage Nursing notes reviewed. Limited review of prior medical records performed Vital Signs: reviewed and remarkable for tachy Differential diagnosis: Differential diagnoses includes but is not limited to gastritis, peptic ulcer disease, GERD, gallbladder disease, pancreatitis, small bowel obstruction, appendicitis, diverticulitis, hernia, urinary tract infection, torsion, [/ectopic (if female)], perforation, trauma, infectious. ER treatment provided: See below Diagnostics interpreted by me include EKG and cardiac monitoring as listed below: -Cardiac Monitoring: An order was placed for continuous cardiac monitoring. The monitor shows a rate of 100 with sinus rhythm. -ECG: none -Laboratory studies:Interpreted by me as stated above in MDM and shown below. Imaging studies: Xrays: As interpreted by me:none CTs show: CT abdomen pelvis per my read shows no obvious bowel obstruction CT abdomen pelvis per radiology showed no acute pathology Procedures:none Critical Care: I have personally spent 32 minutes of critical care time in the direct management of this patient. This includes bedside care, interpretation of diagnostic studies, and testing, discussion with consultants, patient, and family members, and other required patient management activities. This 32 minutes is in excess of all separately billable procedures. Past Med/Surg History Medical History Diabetes mellitus type 1 Gastroparesis Surgical History No pertinent past surgical history Family History Other No pertinent family history Social History Smoking Status: Never smoker Hx Alcohol Use: Yes Alcohol type: hard liquor Hx Substance Use: No Preferred Language: Slovak Communication Ability: Effective Kicking Machine Operator Required: No Beliefs That Will Affect Care: None Current Living Situation: Other Current Living Sit[place] [facility] [place] Safe at Home: Yes Assistive Devices: None Allergies Allergies Allergy/AdvReac Type Severity Reaction Status Date / Time No Known Allergies Allergy Verified 07/23/23 18:28 Home Meds Home Medications Medication Instructions Recorded Confirmed bupropion HCl 200 mg tablet,12 hr 400 mg PO QAM 07/23/23 07/23/23 sustained-release (Wellbutrin SR) spironolactone 100 mg tablet 100 mg PO QAM 07/23/23 07/23/23 Results & Data (ED) Vital Signs Vital Signs - 24 hr 07/23/23 12:44 07/23/23 18:42 07/23/23 18:42 Temperature 36.7 C Temperature Source Temporal Artery Scan Pulse Rate 117 H Pulse Rate [Apical] 101 H Pulse Rate from SpO2 Sensor Pulse Rhythm [Apical] Regular Pulse Strength [Apical] Respiratory Rate 18 18 Respiratory Effort / Characteristics Non-Labored Spontaneous Non-Labored Spontaneous Respiratory Depth Normal Normal Respiratory Pattern Regular Blood Pressure 138/87 Blood Pressure [Right Arm] 125/84 Blood Pressure Mean 104 Blood Pressure Mean [Right Arm] 97 Blood Pressure Position [Right Arm] Lying Pulse Oximetry 99 100 100 Oxygen Delivery Method Room Air Room Air Sepsis Recent Fever Within 48 Hours Yes Sepsis New/Unexplained Change in Mental Status No Sepsis Action Taken by Nursing No Action Required 07/23/23 19:08 07/23/23 19:00 07/23/23 19:30 Temperature Temperature Source Pulse Rate 100 H 96 H 91 H Pulse Rate [Apical] Pulse Rate from SpO2 Sensor 96 H 91 H Pulse Rhythm [Apical] Pulse Strength [Apical] Respiratory Rate 19 22 Respiratory Effort / Characteristics Respiratory Depth Respiratory Pattern Blood Pressure 125/94 108/69 Blood Pressure [Right Arm] Blood Pressure Mean 104 82 Blood Pressure Mean [Right Arm] Blood Pressure Position [Right Arm] Pulse Oximetry 99 100 Oxygen Delivery Method Room Air Room Air Sepsis Recent Fever Within 48 Hours Sepsis New/Unexplained Change in Mental Status Sepsis Action Taken by Nursing 07/23/23 20:00 07/23/23 20:30 07/23/23 20:00 Temperature Temperature Source Pulse Rate 93 H 97 H Pulse Rate [Apical] Pulse Rate from SpO2 Sensor 94 H 96 H Pulse Rhythm [Apical] Regular Pulse Strength [Apical] Normal Respiratory Rate 21 19 Respiratory Effort / Characteristics Non-Labored Respiratory Depth Normal Respiratory Pattern Regular Blood Pressure 106/60 134/88 Blood Pressure [Right Arm] Blood Pressure Mean 75 103 Blood Pressure Mean [Right Arm] Blood Pressure Position [Right Arm] Pulse Oximetry 99 100 Oxygen Delivery Method Room Air Room Air Room Air Sepsis Recent Fever Within 48 Hours Sepsis New/Unexplained Change in Mental Status Sepsis Action Taken by Nursing Laboratory Data 07/23/23 14:05 07/23/23 14:05 Lab Results 07/23/23 07/23/23 07/23/23 Range/Units 14:05 14:05 17:42 WBC 18.57 H (4.8-10.8) K/ul RBC 4.86 (4.20-5.40) M/uL Hgb 15.1 (12.0-16.0) g/dl Hct 44.5 (37.0-47.0) % MCV 91.6 (80.0-100.0) fL MCH 31.1 (25.0-34.0) pg MCHC 33.9 (32.0-36.0) g/dL RDW Std Deviation 40.5 (36.4-46.3) fL RDW Coeff of Josefina 12.2 (11.5-14.5) % Plt Count 394 (130-400) K/uL MPV 9.5 (9.4-12.4) fL Immature Gran % (Auto) 0.8 % Neut % (Auto) 79.1 % Lymph % (Auto) 9.9 % [place] % (Auto) 9.9 % Eos % (Auto) 0.0 % Baso % (Auto) 0.3 % Neut # (Auto) 14.69 H (1.40-6.50) K/uL Lymph # (Auto) 1.84 (1.20-3.40) K/uL [place] # (Auto) 1.83 H (0.11-0.59) K/uL Eos # (Auto) 0.00 (0.00-0.50) K/uL Baso # (Auto) 0.06 (0.00-0.20) K/uL Immature Gran # (Auto) 0.15 (0.01-0.20) K/uL VBG pH (7.36-7.41) VBG pCO2 (38-50) mmHg VBG pO2 mmHg VBG HCO3 mmol/L VBG O2 Saturation % VBG Base Excess mEq/L Sodium 131 L (136-145) mmol/L Potassium 4.3 (3.5-5.1) mmol/L Chloride 101 (98-107) mmol/L Carbon Dioxide 11 L (21-32) mmol/L Anion Gap 19 H (3-11) BUN 14 (6-23) mg/dl Creatinine 0.85 (0.6-1.2) mg/dl Est Cr Clr Drug Dosing 98.0 ml/min Est GFR ( Amer) 113.5 ml/min Est GFR (Non-Af Amer) 97.9 ml/min BUN/Creatinine Ratio 16.5 (10-20) Glucose 283 H (70-99(Fasting)) mg/dl Calcium 9.6 (8.6-10.3) mg/dl Total Bilirubin 0.4 (0.2-1.0) mg/dl AST 13 (13-39) U/L ALT 13 (7-52) U/L Alkaline Phosphatase 90 (34-104) U/L Total Protein 8.6 H (6.0-8.3) gm/dl Albumin 4.7 (3.4-5.0) gm/dl Globulin 3.9 (2.5-4.0) gm/dl Albumin/Globulin Ratio 1.2 (0.9-2) Urine Color Urine Appearance (Clear) Urine pH (4.5-7.5) Ur Specific [place] (1.000-1.030) Urine Protein (Negative) Urine Glucose (UA) (Negative) Urine Ketones (Negative) Urine Blood (Negative) Urine Nitrite (Negative) Urine Bilirubin (Negative) Urine Urobilinogen (Negative) Ur Leukocyte Esterase (Negative) Urine WBC (Auto) (0-5) /hpf Urine RBC (Auto) (0-4) /hpf U Hyaline Cast (Auto) (0-5) /lpf U Epithel Cells (Auto) (0-5) /lpf Urine Bacteria (Auto) (Negative) POC Ur Test NEG (NEG) 07/23/23 07/23/23 Range/Units 19:05 Unknown WBC (4.8-10.8) K/ul RBC (4.20-5.40) M/uL Hgb (12.0-16.0) g/dl Hct (37.0-47.0) % MCV (80.0-100.0) fL MCH (25.0-34.0) pg MCHC (32.0-36.0) g/dL RDW Std Deviation (36.4-46.3) fL RDW Coeff of Josefina (11.5-14.5) % Plt Count (130-400) K/uL MPV (9.4-12.4) fL Immature Gran % (Auto) % Neut % (Auto) % Lymph % (Auto) % [place] % (Auto) % Eos % (Auto) % Baso % (Auto) % Neut # (Auto) (1.40-6.50) K/uL Lymph # (Auto) (1.20-3.40) K/uL [place] # (Auto) (0.11-0.59) K/uL Eos # (Auto) (0.00-0.50) K/uL Baso # (Auto) (0.00-0.20) K/uL Immature Gran # (Auto) (0.01-0.20) K/uL VBG pH 7.23 L (7.36-7.41) VBG pCO2 26 L (38-50) mmHg VBG pO2 40 mmHg VBG HCO3 11 mmol/L VBG O2 Saturation 69.2 % VBG Base Excess -15.0 mEq/L Sodium (136-145) mmol/L Potassium (3.5-5.1) mmol/L Chloride (98-107) mmol/L Carbon Dioxide (21-32) mmol/L Anion Gap (3-11) BUN (6-23) mg/dl Creatinine (0.6-1.2) mg/dl Est Cr Clr Drug Dosing ml/min Est GFR ( Amer) ml/min Est GFR (Non-Af Amer) ml/min BUN/Creatinine Ratio (10-20) Glucose (70-99(Fasting)) mg/dl Calcium (8.6-10.3) mg/dl Total Bilirubin (0.2-1.0) mg/dl AST (13-39) U/L ALT (7-52) U/L Alkaline Phosphatase (34-104) U/L Total Protein (6.0-8.3) gm/dl Albumin (3.4-5.0) gm/dl Globulin (2.5-4.0) gm/dl Albumin/Globulin Ratio (0.9-2) Urine Color Yellow Urine Appearance Clear (Clear) Urine pH 6.0 (4.5-7.5) Ur Specific [place] 1.036 H (1.000-1.030) Urine Protein 1+ H (Negative) Urine Glucose (UA) 3+ H (Negative) Urine Ketones 4+ H (Negative) Urine Blood Negative (Negative) Urine Nitrite Negative (Negative) Urine Bilirubin Negative (Negative) Urine Urobilinogen Negative (Negative) Ur Leukocyte Esterase Negative (Negative) Urine WBC (Auto) 5-10 H (0-5) /hpf Urine RBC (Auto) 0-4 (0-4) /hpf U Hyaline Cast (Auto) 5-10 H (0-5) /lpf U Epithel Cells (Auto) 10-20 H (0-5) /lpf Urine Bacteria (Auto) Negative (Negative) POC Ur Test (NEG) Administered Medications Insulin Human Regular 250 (units/ Sodium Chloride) 250 mls @ 1.5 mls/hr IV .Q 24H MARIO; Protocol Stop: 08/22/23 17:59 Last Titration: 07/23/23 20:23 Dose: 1 units/hr, 1 mls/hr Documented By: MARCO A Co-signed By: BAL Titration: 07/23/23 19:16 Dose: 1.5 units/hr, 1.5 mls/hr Documented By: MARCO A Co-signed By: HARDY Admin: 07/23/23 19:16 Dose: 1.2 units/hr, 1.2 mls/hr Documented By: MARCO A Co-signed By: HARDY Admin: 07/23/23 18:37 Dose: 1.5 units/hr, 1.5 mls/hr Documented By: KATHY Co-signed By: KV Discontinued Medications Sodium Chloride (Nss) 500 mls @ 999 mls/hr IV .Q31M STA Stop: 07/23/23 13:19 Last Infusion: 07/23/23 15:49 Dose: 0 mls/hr Documented By: Admin: 07/23/23 14:01 Dose: 999 mls/hr Documented By: MMZ Ceftriaxone Sodium (Rocephin) 2,000 mg in 70 mls @ 140 mls/hr IV NOW STA Stop: 07/23/23 17:31 Last Infusion: 07/23/23 18:41 Dose: 0 mls/hr Documented By: Admin: 07/23/23 17:34 Dose: 140 mls/hr Documented By: RENATE Sodium Chloride (Nss) 2,000 mls @ 999 mls/hr IV .Q2H1M ONE Stop: 07/23/23 20:23 Last Infusion: 07/23/23 20:56 Dose: 0 mls/hr Documented By: MARCO A Admin: 07/23/23 19:05 Dose: 999 mls/hr Documented By: MARCO A Insulin Human Regular (Novolin-R Bolus From Bag) 1.5 units IV ONE ONE Stop: 07/23/23 19:01 Last Admin: 07/23/23 19:19 Dose: 1.5 units Documented By: MARCO A Co-signed By: HARDY Ketorolac Tromethamine (Ketorolac Tromethamine 15 Mg/Ml Vial) 15 mg IV NOW STA Stop: 07/23/23 14:00 Last Admin: 07/23/23 14:01 Dose: 15 mg Documented By: LORRI Daigle (Stat Iv Infusion Titration Per Protocol) 1 each N/A NOW STA Stop: 07/23/23 17:53 Last Admin: 07/23/23 18:41 Dose: Not Given Documented By: KATHY Daigle (Dka Goal Range 150-250 Mg/Dl) 1 each N/A ONE ONE Stop: 07/23/23 17:53 Last Admin: 07/23/23 18:41 Dose: 1 each Documented By: KATHY Morphine Sulfate (Morphine Sulfate 4 Mg/Ml 1 Ml Carp\Vial) 4 mg IV NOW STA Stop: 07/23/23 18:37 Last Admin: 07/23/23 19:45 Dose: 4 mg Documented By: MARCO A Imaging Data Radiologist's Impression: Abdomen/Pelvis CT 07/23/23 12:50 CT abd pelvis wo con CLINICAL HISTORY: Recent kidney stone TECHNIQUE: Helical axial images of the abdomen and pelvis were obtained. Automated dose lowering techniques and/or adjustment according to patient size were utilized for this exam. This exam was performed without intravenous contrast. CT DOSE: 506.24 mGy.cm COMPARISON: Comparison is made to CT abdomen pelvis 02/27/2022 FINDINGS: Lower chest: No acute abnormality. Liver: Unremarkable. No focal lesions are seen. Gallbladder and biliary tree: No calcified gallstones. Normal caliber wall. No intra- or extrahepatic biliary ductal dilation. Pancreas: Unremarkable, no focal lesions. Spleen: Unremarkable. Adrenals: Unremarkable. 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 No obstructive stone is seen bilaterally. Punctate calcification in the left superior kidney is again seen which was previously noted to be in association with a region of scarring. Bladder: Unremarkable. Reproductive organs: Unremarkable. Bowel: The appendix is normal. Lymph nodes Retroperitoneal: Subcentimeter lymph nodes are noted. Pelvic: Unremarkable. Mesenteric: Unremarkable. Peritoneum: Normal. Vessels: Unremarkable. Abdominal wall: Unremarkable. Bones: Unremarkable. IMPRESSION: 1. No acute abnormalities and in particular there is no evidence of obstructive stone. 2. 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 ACT 112: Negative or not required by law. Electronically signed by: Lb Arriaga M.D. 07/23/2023 2:10 PM Discharge Plan Visit Data Chief Complaint: Kidney Stone ED Provider: Orestes Wolf Discharge Problem: DKA (diabetic ketoacidosis), Acute flank pain Forms Stand Alone Forms: My [employer] Prescriptions Prescriptions: No Action spironolactone 100 mg Tablet 100 mg PO QAM bupropion HCl [Wellbutrin SR] 200 mg Tablet Sustained-Release 12 Hr 400 mg PO QAM Referrals Referrals: [facility] [Primary Care Provider] -
[2023-07-23] MEDS ORDERED: DKA GOAL RANGE 150-250 mg/dl ONE (17:52)
[2023-07-23] MEDS ORDERED: STAT IV Infusion **Titration per Protocol STA (17:52)
[2023-07-23] MEDS ORDERED: GLUCAGON FOR INJ 1 MG VIAL SQ PRN (17:52)
[2023-07-23] MEDS ORDERED: CARBOHYDRATES FOR HYPOGLYCEMIA PO PRN (17:52)
[2023-07-23] MEDS ORDERED: GLUCOSE 40% GEL 15 GM TUBE PO PRN (17:52)
[2023-07-23] MEDS ORDERED: GLUCOSE 10 TAB/TUBE PO PRN (17:52)
[2023-07-23] MEDS ORDERED: DEXTROSE 50% 50 ML SYRINGE IV PRN (17:52)
[2023-07-23 17:58] LABS: Appearance Urine Clear (Clear); Bacteria Urine Automated Negative (Negative); Bilirubin Urine Negative (Negative); Blood Urine Negative (Negative); Color Urine Yellow; Glucose Urine UA 3+ (Negative); Ketones Urine 4+ (Negative); Leukocyte Esterase Urine Negative (Negative); Nitrite Urine Negative (Negative); Protein Urine 1+ (Negative); RBC Urine Automated 0-4 /hpf (0-4); Specific Gravity Urine 1.036 (1.000-1.030); Urobilinogen Urine Negative (Negative)
[2023-07-23] MEDS ORDERED: SODIUM CHLORIDE 0.9% 2,000 ML IV ONE (18:23)
--- NOTE | 2023-07-23 18:30 | History & Physical Report ---
Date of Service July 23, 2023 Assessment & Plan (1) Diabetes mellitus type 1: Plan: DKA, type 1 diabetes Presented with right flank pain of 1 week Bicarb 11, Anion gap 19, Admitting BSG 283. VBG 7.///11. Repeat post fluids pending. Leukocytosis of 18 with neutrophilic predominance, no left shift. Patient endorses increased frequency, urgency, and dysuria with associated night sweats. R flank pain. UA without leukocyte esterase, nitrates, or bacteria. Received empiric Rocephin on admit. Given strong clinical story will follow for culture and continue empiric Rocephin at this time CTA/P: No acute findings, no evidence of obstructive stone. 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 Corrected 135 Home glycemic regimen: Lispro 3 times daily a.m. max 20u per day, Lantus 6 units every morning - No prior A1c available, pending Suspect exacerbated by UTI UTI symptoms Patient endorses fevers, chills, right flank pain, and dysuria consistent with complicated UTI/pyelo since Friday UA is without nitrites/leukocyte esterase, is with ketones/glucose/casts consistent with DKA. Follow UCx Continue empiric treatment with Rocephin Denies vaginal discharge/symptoms Denies respiratory symptoms Gastroparesis Follows with [facility] N.p.o. for DKA treatment Patient reports this has been adequately controlled recently DVT prophylaxis: Low risk, SCDs Diet: N.p.o. Disposition: PCU CODE STATUS: Full (2) Gastroparesis: (3) UTI symptoms: History of Present Illness [facility] the bedside. She reports she was in her usual state of health until this past Friday when she started to feel nauseous and had dysuria, polyuria, increased urinary urgency and right flank pain. She does have a past history of a kidney stone with Harry which was treated at [facility] in September 2022 and no problems or recurrence since that time. She reports she has felt sweaty and with fevers each day since then. She has had no cough, shortness of breath, chest pain, chest pressure. She reports she does not really have abdominal pain, mostly just right back and flank pain with dysuria. Feels similar to prior kidney stone she is compliant with her diabetes medications, takes a max of 20 units of short acting insulin at home and 6 units of Lantus daily. She did take her normal dose of Humalog at around 11:30 AM, and did take 6 units of Lantus this. She reports her blood sugars have been off this week and up to the 350s, she has not checked her blood sugar in the last 24 hours because her Dexcom and she was very fatigued from being ill and did not have the energy to replace the batteries she reports she was peeing very frequently up until about 2 days ago when her urination decreased in volume, she has peed a little more since being in the ER. She has never had DKA before. She denies other medical history. Endorses social alcohol intake, none this week and notes that she did not even go out to the game because she was feeling so poorly. Denies tobacco use. Full code Allergies Allergy/AdvReac Type Severity Reaction Status Date / Time No Known Allergies Allergy Verified 07/23/23 18:28 Home Medications Medication Instructions Recorded Confirmed Type bupropion HCl 200 mg tablet,12 hr 400 mg PO QAM 07/23/23 07/23/23 History sustained-release (Wellbutrin SR) spironolactone 100 mg tablet 100 mg PO QAM 07/23/23 07/23/23 History Past Med/Surg History Medical History Diabetes mellitus type 1 Gastroparesis Surgical History No pertinent past surgical history Family History Other No pertinent family history Social History Smoking Status: Never smoker Hx Alcohol Use: Yes Alcohol type: hard liquor Hx Substance Use: No Preferred Language: Sammarinese Communication Ability: Effective 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 NAD. Cooperative. HEENT: Atraumatic, normocephalic. Vision/hearing grossly intact. MM tacky. Pulm: CTAB A&P. -wheezes, -rales, -rhonchi. Symmetrical chest rise. No increased work of breathing. No respiratory distress. Cardiac: Regular,, -mrg. Radial pulses intact and symmetrical. Abdominal: Nontender, nondistended, soft. BS present. Right flank/CVA tenderness Extremities: Warm, dry. Moves all extremities equally. No edema. PT pulse intact bilaterally, radial pulse intact bilaterally Results & Data Results & Data Vital Signs (Past 12 Hours) Vital Signs Temp Pulse Resp BP Pulse Ox O2 Del Method 07/23/23 12:44 36.7 C 117 H 18 138/87 99 Room Air PG Care Time/CCT Total # of Minutes Spent Total Time Spent with Patient: Total time spent is greater than 50% in coordination of care (as documented) at patient's floor/unit and/or counseling patient: Coding Level of Care Code 99712 INT INP/OBS CARE 3/75MIN Diagnoses Diabetes mellitus type 1 E10.9 Gastroparesis K31.84 UTI symptoms R39.9
[2023-07-23] MEDS ORDERED: MoRPHine SULFATE 4 MG/ML 1 ML CARP\\VIAL IV STA (18:36)
[2023-07-23] MEDS: INSULIN REGULAR 250 UNITS in SODIUM CHLORIDE 0.9% 247.5 ML IV SCH ×2 (18:37→19:16)
[2023-07-23] MEDS ORDERED: NovoLIN-R BOLUS FROM BAG IV ONE (19:00)
[2023-07-23 19:23] LABS: HCO3 VBG 11 mmol/L; Oxygen Saturation VBG 69.2 %; PCO2 VBG 26 mmHg (38-50); PO2 VBG 40 mmHg; pH VBG 7.23 (7.36-7.41)
[2023-07-23] MEDS ORDERED: INSULIN ASPART PER UNIT CHARGE SC SCH (21:00)
[2023-07-23] MEDS: INSULIN ASPART PER UNIT CHARGE SC SCH (21:30)
[2023-07-23] MEDS ORDERED: ONDANSETRON INJ 2 MG/ML 2 ML VIAL IV PRN (23:09)
[2023-07-23] MEDS ORDERED: PENDING D5 1/2NS+20mEq KCL IVF SCH (23:09)
[2023-07-23] MEDS ORDERED: PENDING 1/2NSS+20mEq KCL IVF SCH (23:09)
[2023-07-23] MEDS ORDERED: PHARMACY GLYCEMIC MGMT CONSULT PRN (23:09)
[2023-07-23 23:14] LABS: Alanine Aminotransferase 11 U/L (7-52); Albumin Globulin Ratio 1.2 (0.9-2); Albumin Level 3.7 gm/dl (3.4-5.0); Alkaline Phosphatase 65 U/L (34-104); Anion Gap 14 (3-11); Aspartate Aminotransferase 13 U/L (13-39); BUN Creatinine Ratio 19.6 (10-20); Bilirubin,Total 0.3 mg/dl (0.2-1.0); Blood Urea Nitrogen 11 mg/dl (6-23); Calcium 8.2 mg/dl (8.6-10.3); Carbon Dioxide 13 mmol/L (21-32); Chloride 108 mmol/L (98-107); Creatinine Clr Calc Pharmacy 148.8 ml/min; Est GFR (African American) > 150.0 ml/min; Est GFR (Non-African American) 133.3 ml/min; Glucose 163 mg/dl (70-99(Fasting)); Magnesium 1.6 mg/dl (1.7-2.4); Phosphorus 2.2 mg/dl (2.5-4.9); Potassium 3.4 mmol/L (3.5-5.1); Sodium 135 mmol/L (136-145); Total Protein 6.7 gm/dl (6.0-8.3)
[2023-07-23 23:32] LABS: Base Excess VBG -12.8 mEq/L; HCO3 VBG 13 mmol/L; Oxygen Saturation VBG < 60.0 %; PCO2 VBG 31 mmHg (38-50); PO2 VBG 32 mmHg; pH VBG 7.24 (7.36-7.41)
[2023-07-23 23:35] LABS: Basophils # (auto) 0.03 K/uL (0.00-0.20); Basophils % (auto) 0.2 %; Eosinophils # (auto) 0.02 K/uL (0.00-0.50); Eosinophils % (auto) 0.1 %; Hematocrit (blood only) 38.1 % (37.0-47.0); Hemoglobin 13.3 g/dl (12.0-16.0); Immature Granulocytes # (auto) 0.09 K/uL (0.01-0.20); Immature Granulocytes % (auto) 0.7 %; Lymphocytes # (auto) 2.34 K/uL (1.20-3.40); Lymphocytes % (auto) 17.1 %; Mean Corpuscular Hemoglobin 31.7 pg (25.0-34.0); Mean Corpuscular Hgb Conc 34.9 g/dL (32.0-36.0); Mean Corpuscular Volume 90.7 fL (80.0-100.0); Mean Platelet Volume 9.2 fL (9.4-12.4); Monocytes # (auto) 1.53 K/uL (0.11-0.59); Monocytes % (auto) 11.2 %; Neutrophils # (auto) 9.67 K/uL (1.40-6.50); Neutrophils % (auto) 70.7 %; Platelet Count 321 K/uL (130-400); RDW Coefficient of Variation 12.2 % (11.5-14.5); White Blood Count 13.68 K/ul (4.8-10.8)
[2023-07-23 23:57] LABS: Anion Gap 16 (3-11); BUN Creatinine Ratio 18.6 (10-20); Blood Urea Nitrogen 11 mg/dl (6-23); Calcium 8.4 mg/dl (8.6-10.3); Carbon Dioxide 12 mmol/L (21-32); Chloride 106 mmol/L (98-107); Creatinine Clr Calc Pharmacy 141.2 ml/min; Est GFR (African American) > 150.0 ml/min; Glucose 164 mg/dl (70-99(Fasting)); Magnesium 1.7 mg/dl (1.7-2.4); Phosphorus 1.9 mg/dl (2.5-4.9); Potassium 3.3 mmol/L (3.5-5.1); Sodium 134 mmol/L (136-145)
[2023-07-23] MEDS: D5W AND 1/2NSS + 20MEQ KCL 20 MEQ/1,000 ML BAG IV SCH (23:58)
[2023-07-23] MEDS: ACETAMINOPHEN 325 MG TAB PO PRN (23:58)
[2023-07-24] MEDS: MoRPHine SULFATE 2 MG/ML CARP IV PRN ×2 (00:32→20:15)
[2023-07-24 03:52] LABS: Basophils # (auto) 0.05 K/uL (0.00-0.20); Basophils % (auto) 0.4 %; Eosinophils # (auto) 0.05 K/uL (0.00-0.50); Eosinophils % (auto) 0.4 %; Hematocrit (blood only) 36.8 % (37.0-47.0); Hemoglobin 12.6 g/dl (12.0-16.0); Immature Granulocytes # (auto) 0.09 K/uL (0.01-0.20); Immature Granulocytes % (auto) 0.7 %; Lymphocytes # (auto) 1.88 K/uL (1.20-3.40); Lymphocytes % (auto) 13.6 %; Mean Corpuscular Hemoglobin 31.2 pg (25.0-34.0); Mean Corpuscular Hgb Conc 34.2 g/dL (32.0-36.0); Mean Corpuscular Volume 91.1 fL (80.0-100.0); Mean Platelet Volume 9.6 fL (9.4-12.4); Monocytes # (auto) 1.58 K/uL (0.11-0.59); Monocytes % (auto) 11.5 %; Neutrophils # (auto) 10.14 K/uL (1.40-6.50); Neutrophils % (auto) 73.4 %; Platelet Count 310 K/uL (130-400); RDW Coefficient of Variation 12.1 % (11.5-14.5); RDW Standard Deviation 40.6 fL (36.4-46.3); Red Blood Count 4.04 M/uL (4.20-5.40); White Blood Count 13.79 K/ul (4.8-10.8)
[2023-07-24 04:01] LABS: Anion Gap 10 (3-11); BUN Creatinine Ratio 13.1 (10-20); Blood Urea Nitrogen 8 mg/dl (6-23); Calcium 8.2 mg/dl (8.6-10.3); Carbon Dioxide 15 mmol/L (21-32); Chloride 105 mmol/L (98-107); Creatinine Clr Calc Pharmacy 136.6 ml/min; Est GFR (African American) > 150.0 ml/min; Est GFR (Non-African American) 129.6 ml/min; Glucose 243 mg/dl (70-99(Fasting)); Magnesium 1.7 mg/dl (1.7-2.4); Phosphorus 2.5 mg/dl (2.5-4.9); Potassium 3.6 mmol/L (3.5-5.1); Sodium 130 mmol/L (136-145)
[2023-07-24] MEDS: D5W AND 1/2NSS + 20MEQ KCL 20 MEQ/1,000 ML BAG IV SCH ×2 (06:28→13:50)
[2023-07-24] MEDS: KETOROLAC TROMETHAMINE 15 MG/ML VIAL IV PRN ×2 (07:33→22:13)
[2023-07-24 07:48] LABS: Anion Gap 11 (3-11); BUN Creatinine Ratio 12.2 (10-20); Blood Urea Nitrogen 6 mg/dl (6-23); Calcium 8.3 mg/dl (8.6-10.3); Carbon Dioxide 17 mmol/L (21-32); Chloride 106 mmol/L (98-107); Est GFR (African American) > 150.0 ml/min; Est GFR (Non-African American) 139.3 ml/min; Glucose 223 mg/dl (70-99(Fasting)); Magnesium 1.6 mg/dl (1.7-2.4); Phosphorus 2.2 mg/dl (2.5-4.9); Potassium 3.6 mmol/L (3.5-5.1); Sodium 134 mmol/L (136-145)
[2023-07-24 07:48] LABS: Estimated Average Glucose 381 mg/dl; Hemoglobin A1C 14.9 % (4.5-5.6)
[2023-07-24] MEDS: INSULIN ASPART PER UNIT CHARGE SC SCH ×7 (07:49→23:48)
[2023-07-24 11:38] LABS: Anion Gap 11 (3-11); BUN Creatinine Ratio 10.9 (10-20); Blood Urea Nitrogen 5 mg/dl (6-23); Calcium 8.8 mg/dl (8.6-10.3); Carbon Dioxide 16 mmol/L (21-32); Chloride 105 mmol/L (98-107); Creatinine Clr Calc Pharmacy 181.1 ml/min; Est GFR (African American) > 150.0 ml/min; Est GFR (Non-African American) 142.2 ml/min; Glucose 207 mg/dl (70-99(Fasting)); Magnesium 1.7 mg/dl (1.7-2.4); Phosphorus 1.7 mg/dl (2.5-4.9); Potassium 3.3 mmol/L (3.5-5.1); Sodium 132 mmol/L (136-145)
[2023-07-24] MEDS ORDERED: KETOROLAC TROMETHAMINE 15 MG/ML VIAL IV ONE (12:12)
--- NOTE | 2023-07-24 12:13 | Hospitalist Progress Note ---
Date of Service July 24, 2023 Assessment & Plan (1) Diabetes mellitus type 1: Plan: DKA, type 1 diabetes Presented with right flank pain of 1 week Bicarb 11, Anion gap 19, Admitting BSG 283. VBG 7.23///11. Leukocytosis of 18 with neutrophilic predominance, no left shift. Patient endorses increased frequency, urgency, and dysuria with associated night sweats. R flank pain. UA without leukocyte esterase, nitrates, or bacteria. Received empiric Rocephin on admit. Given strong clinical story will follow for culture and continue empiric Rocephin at this time CTA/P: No acute findings, no evidence of obstructive stone. 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 Corrected 135 -Anion gap has closed with Insuln drip, will discontinue and transition to SQ insulon. Appreciate pharamacy Home glycemic regimen: Lispro 3 times daily a.m. max 20u per day, Lantus 6 units every morning -Hb A1C 14.9 -Patient claims she has been compliant with her insulin, however, A1C of 14.9 tells a different story -Follows up with an [employer] (she dosent know her full name) there are plans for her to get an insulin pump, which I think is very reasonable given poorly controlled DM UTI symptoms Patient endorses fevers, chills, right flank pain, and dysuria consistent with complicated UTI/pyelo since Friday UA is without nitrites/leukocyte esterase, is with ketones/glucose/casts consistent with DKA. Continue empiric treatment with Rocephin Denies vaginal discharge/symptoms Denies respiratory symptoms Gastroparesis Follows with [facility] Patient reports this has been adequately controlled recently DVT prophylaxis: Low risk, SCDs Diet: N.p.o. Disposition: PCU CODE STATUS: Full (2) Gastroparesis: (3) UTI symptoms: Admission and Anticipated Discharge Date Admission Date: July 23, 2023 Subjective patient seen and examined, says she is hungry, still complains of right flank pain and dysuria Review of Systems Review of Systems: All systems reviewed are negative, apart from the ones contained in the history. Physical Exam Physical Exam: The patient is awake, alert and oriented 3, well developed and well nourished, normocephalic and atraumatic, lying in bed and in no acute distress. HEENT--PERRL, EOMI, mucous membranes and oropharynx mildly dry Neck--supple. No JVD. No bruits. Thyroid normal, trachea midline, no adenopathy. Heart--normal S1 and S2. No murmurs, rubs or gallops. Lungs--clear bilaterally, no respiratory distress, no accessory muscle use. Abdomen--normal bowel sounds and soft. Mild epigastric and left sided abdominal pain Extremities--no cyanosis or clubbing. No edema. Dermatologic--normal skin turgor, normal color, no abnormal lymph nodes, no rash. Neurologic--cranial nerves II through XII grossly intact. Rheumatologic--normal range of motion. Psychiatric--normal affect. Results & Data Results & Data Vital Signs (Past 12 Hours) Vital Signs Temp Pulse Pulse Resp BP Pulse Ox O2 Del Method 07/24/23 11:06 98.2 F 103 H 16 114/79 98 Room Air 07/24/23 08:00 84 07/24/23 07:46 99.1 F 98 H 16 100/66 97 Room Air 07/24/23 03:21 97.9 F 69 18 106/67 98 Room Air 07/24/23 01:40 Room Air PG Care Time/CCT Total # of Minutes Spent Total Time Spent with Patient: Total time spent is greater than 50% in coordination of care (as documented) at patient's floor/unit and/or counseling patient: Coding Level of Care Code 45389 SUB INP/OBS CARE 2/35MIN Diagnoses Diabetes mellitus type 1 E10.9 Gastroparesis K31.84 UTI symptoms R39.9 Time Spent (min) 35
[2023-07-24] MEDS ORDERED: LANTUS PER UNIT CHARGE SC SCH (12:30)
[2023-07-24] MEDS: POTASSIUM CHLORIDE / WTR 10 MEQ/100 ML PLCT IV SCH ×4 (13:03→16:45)
--- NOTE | 2023-07-24 13:31 | Pharmacy Report ---
Pharmacy Glycemic Short Note 2 - Date of Service July 24, 2023 - Glycemic Short BSG Results (Last 24 hours): 07/23/23 07/23/23 07/23/23 14:05 18:26 19:13 Glucose 283 H POC Glucose 251 H 220 H 07/23/23 07/23/23 07/23/23 20:20 21:27 22:20 Glucose 163 H POC Glucose 166 H 162 H 07/23/23 07/23/23 07/23/23 22:26 23:17 23:35 Glucose 164 H POC Glucose 156 H 161 H 07/24/23 07/24/23 07/24/23 00:31 02:39 03:12 Glucose 243 H POC Glucose 150 H 212 H 07/24/23 07/24/23 07/24/23 04:38 05:45 06:27 Glucose POC Glucose 234 H 219 H 231 H 07/24/23 07/24/23 07/24/23 07:10 07:33 08:35 Glucose 223 H POC Glucose 201 H 194 H 07/24/23 07/24/23 07/24/23 09:35 10:32 10:54 Glucose 207 H POC Glucose 235 H 213 H 07/24/23 07/24/23 11:29 12:37 Glucose POC Glucose 176 H 205 H OUTPATIENT ANTIDIABETIC REGIMEN: * Lantus 6 units SQ QAM * Lispro TID (max of 20 units/day) HbA1c = 14.9% ASSESSMENT: * 22 y/o F admitted for DKA and UTI yesterday. She has history of Type 1 diabetes and gastroparesis. Given high A1c, questionable compliance with home insulin regimen. * Patient was started on insulin drip last night. Drip rate since yesterday night have ranged between 1 unit/hr to 1.7 units/hr. Estimate she needs total of around 30 units of insulin in 24hrs. She has been NPO. * Labs almost normal late this morning with Gap closed but Bicarb of 16 mmol/L, pH = 7.31 which allowed for insulin drip transition. * Spoke with Dr. Villarreal, plan to start her on clear liquids today and stop IV fluids. * Lantus 10 units based on stress of 2 was given around noon. Expect insulin drip to transition off this afternoon. * Novolog started with correction and carb ratio based on stress of 2. Overnight checks added. PLAN FOR INPATIENT GLYCEMIC CONTROL: * Basal insulin * Lantus 10 units SQ x1 today. Re-assess tomorrow. * Bolus insulin * NovoLog per scale ACHS or Q6hrs while NPO * Goal Range: Low 110 mg/dL - High 140 mg/dL * Correction Factor: 25 mg/dL/unit * Nutritional / Prandial insulin per carb ratio of 1 unit per 9 grams CHO consumed
[2023-07-24] MEDS ORDERED: INFLUENZA VIRUS QUADRIVALENT VACCINE (IIV4) 0.5 ML SYR IM ONE (15:04)
[2023-07-24] MEDS: ACETAMINOPHEN 325 MG TAB PO PRN (15:12)
[2023-07-24 16:41] LABS: Anion Gap 9 (3-11); Calcium 8.5 mg/dl (8.6-10.3); Carbon Dioxide 17 mmol/L (21-32); Chloride 106 mmol/L (98-107); Magnesium 1.6 mg/dl (1.7-2.4); Potassium 3.5 mmol/L (3.5-5.1); Sodium 132 mmol/L (136-145)
[2023-07-24] MEDS ORDERED: cefTRIAXone SODIUM 2,000 MG in DEXTROSE 5% 50 ML IV SCH (17:00)
[2023-07-24 17:04] LABS: BUN Creatinine Ratio 11.1 (10-20); Blood Urea Nitrogen 4 mg/dl (6-23); Creatinine Clr Calc Pharmacy 231.4 ml/min; Est GFR (African American) > 150.0 ml/min; Est GFR (Non-African American) > 150.0 ml/min; Glucose 150 mg/dl (70-99(Fasting)); Phosphorus 1.5 mg/dl (2.5-4.9)
[2023-07-24] MEDS ORDERED: SODIUM PHOSPHATE 3 MMOL/1 ML INFUSION IV STA (17:06)
[2023-07-24] MEDS ORDERED: SODIUM PHOSPHATE 9 MMOL in SODIUM CHLORIDE 0.9% 250 ML IV ONE (17:30)
[2023-07-24 20:00] LABS: Anion Gap 10 (3-11); BUN Creatinine Ratio 6.4 (10-20); Blood Urea Nitrogen 3 mg/dl (6-23); Carbon Dioxide 19 mmol/L (21-32); Chloride 105 mmol/L (98-107); Creatinine Clr Calc Pharmacy 177.3 ml/min; Est GFR (African American) > 150.0 ml/min; Est GFR (Non-African American) 141.2 ml/min; Glucose 189 mg/dl (70-99(Fasting)); Magnesium 1.8 mg/dl (1.7-2.4); Phosphorus 2.3 mg/dl (2.5-4.9); Potassium 3.8 mmol/L (3.5-5.1); Sodium 134 mmol/L (136-145)
[2023-07-25] MEDS: INSULIN ASPART PER UNIT CHARGE SC SCH ×3 (04:18→12:02)
[2023-07-25 06:43] LABS: Basophils # (auto) 0.05 K/uL (0.00-0.20); Basophils % (auto) 0.5 %; Eosinophils # (auto) 0.11 K/uL (0.00-0.50); Eosinophils % (auto) 1.1 %; Hematocrit (blood only) 35.8 % (37.0-47.0); Hemoglobin 12.6 g/dl (12.0-16.0); Immature Granulocytes # (auto) 0.05 K/uL (0.01-0.20); Immature Granulocytes % (auto) 0.5 %; Lymphocytes # (auto) 2.01 K/uL (1.20-3.40); Lymphocytes % (auto) 19.8 %; Mean Corpuscular Hemoglobin 31.2 pg (25.0-34.0); Mean Corpuscular Hgb Conc 35.2 g/dL (32.0-36.0); Mean Corpuscular Volume 88.6 fL (80.0-100.0); Mean Platelet Volume 9.3 fL (9.4-12.4); Monocytes # (auto) 1.52 K/uL (0.11-0.59); Neutrophils # (auto) 6.39 K/uL (1.40-6.50); Neutrophils % (auto) 63.1 %; Platelet Count 346 K/uL (130-400); RDW Standard Deviation 38.9 fL (36.4-46.3); Red Blood Count 4.04 M/uL (4.20-5.40); White Blood Count 10.13 K/ul (4.8-10.8)
[2023-07-25 06:59] LABS: Anion Gap 12 (3-11); BUN Creatinine Ratio 8.9 (10-20); Blood Urea Nitrogen 4 mg/dl (6-23); Calcium 8.7 mg/dl (8.6-10.3); Carbon Dioxide 20 mmol/L (21-32); Chloride 105 mmol/L (98-107); Creatinine Clr Calc Pharmacy 185.1 ml/min; Est GFR (African American) > 150.0 ml/min; Est GFR (Non-African American) 143.2 ml/min; Glucose 174 mg/dl (70-99(Fasting)); Potassium 3.2 mmol/L (3.5-5.1); Sodium 137 mmol/L (136-145)
[2023-07-25] MEDS ORDERED: POTASSIUM CHLORIDE CRTAB 20 MEQ TABCR PO STA (07:58)
[2023-07-25] MEDS: KETOROLAC TROMETHAMINE 15 MG/ML VIAL IV PRN (08:21)
[2023-07-25] MEDS ORDERED: LANTUS PER UNIT CHARGE SC SCH (09:00)
--- NOTE | 2023-07-25 10:12 | Pharmacy Report ---
Pharmacy Glycemic Short Note 2 - Date of Service July 25, 2023 - Glycemic Short BSG Results (Last 24 hours): 07/24/23 07/24/23 07/24/23 10:32 10:54 11:29 Glucose 207 H POC Glucose 213 H 176 H 07/24/23 07/24/23 07/24/23 12:37 13:37 15:11 Glucose 150 H POC Glucose 205 H 216 H 07/24/23 07/24/23 07/24/23 16:25 19:30 20:01 Glucose 189 H POC Glucose 204 H 165 H 07/24/23 07/25/23 07/25/23 23:26 03:42 06:02 Glucose 174 H POC Glucose 165 H 155 H 07/25/23 07:24 Glucose POC Glucose 183 H OUTPATIENT ANTIDIABETIC REGIMEN: * Lantus 6 units SQ QAM * Lispro TID (max of 20 units/day) HbA1c = 14.9% (07/23/23) ASSESSMENT: 07/25/23: * BSGs trended down nicely following insulin gtt transition * Patient received 10 units of Lantus in addition to aggressive Novolog parameters * Fasting BSG of 183 mg/dL - despite this level above goal, will be conservative with follow-up dosing as patient has T1DM and prior regimen is somewhat aggressive for follow-up dosing * Hyperglycemic at lunchtime, but per RN this BSG was obtained after patient had eaten lunch. Rechecked ~2.5 hours later and now 226 mg/dL. 07/24/23: * 22 y/o F admitted for DKA and UTI yesterday. She has history of Type 1 diabetes and gastroparesis. Given high A1c, questionable compliance with home insulin regimen. * Patient was started on insulin drip last night. Drip rate since yesterday night have ranged between 1 unit/hr to 1.7 units/hr. Estimate she needs total of around 30 units of insulin in 24hrs. She has been NPO. * Labs almost normal late this morning with Gap closed but Bicarb of 16 mmol/L, pH = 7.31 which allowed for insulin drip transition. * Spoke with Dr. Villarreal, plan to start her on clear liquids today and stop IV fluids. * Lantus 10 units based on stress of 2 was given around noon. Expect insulin drip to transition off this afternoon. * Novolog started with correction and carb ratio based on stress of 2. Overnight checks added. PLAN FOR INPATIENT GLYCEMIC CONTROL: * Basal insulin - decrease * Lantus 6 units SC daily * Bolus insulin - loosen * NovoLog per scale ACHS or Q6hrs while NPO * Goal Range: Low 110 mg/dL - High 140 mg/dL * Correction Factor: 35 mg/dL/unit * Nutritional / Prandial insulin per carb ratio of 1 unit per 12 grams CHO consumed * 00,04 checks tonight with same parameters
[2023-07-25] MEDS ORDERED: LANTUS PER UNIT CHARGE SC ONE (12:30)
[2023-07-26] MEDS ORDERED: INSULIN ASPART PER UNIT CHARGE SC SCH
[2023-07-26] MEDS ORDERED: LANTUS PER UNIT CHARGE SC SCH (09:00)
== END 2023-07-25 15:41 | disposition home or self-care (01) | DRG 638 ==
LOC: ED 12:03 → 2S 20:02 → INTOOBSV 20:02 → SUATTDRO 20:02 → 2S 22:48

== ENCOUNTER 2023-08-16 01:54 | Inpatient (IN) ==
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
[2023-08-16] MEDS ORDERED: SODIUM CHLORIDE 0.9% 500 ML IV STA (02:20)
[2023-08-16] MEDS ORDERED: ONDANSETRON INJ 2 MG/ML 2 ML VIAL IV STA (02:20)
[2023-08-16] MEDS ORDERED: ACETAMINOPHEN 1,000 MG/100 ML VIAL IV STA (02:26)
[2023-08-16 03:23] LABS: Basophils # (auto) 0.08 K/uL (0.00-0.20); Basophils % (auto) 0.9 %; Eosinophils # (auto) 0.03 K/uL (0.00-0.50); Eosinophils % (auto) 0.3 %; Hematocrit (blood only) 38.4 % (37.0-47.0); Hemoglobin 13.4 g/dl (12.0-16.0); Immature Granulocytes # (auto) 0.05 K/uL (0.01-0.20); Immature Granulocytes % (auto) 0.6 %; Lymphocytes # (auto) 2.57 K/uL (1.20-3.40); Lymphocytes % (auto) 28.8 %; Mean Corpuscular Hemoglobin 31.7 pg (25.0-34.0); Mean Corpuscular Hgb Conc 34.9 g/dL (32.0-36.0); Mean Corpuscular Volume 90.8 fL (80.0-100.0); Mean Platelet Volume 10.4 fL (9.4-12.4); Monocytes # (auto) 0.43 K/uL (0.11-0.59); Monocytes % (auto) 4.8 %; Neutrophils # (auto) 5.76 K/uL (1.40-6.50); Neutrophils % (auto) 64.6 %; Platelet Count 386 K/uL (130-400); RDW Coefficient of Variation 12.5 % (11.5-14.5); RDW Standard Deviation 41.1 fL (36.4-46.3); Red Blood Count 4.23 M/uL (4.20-5.40); White Blood Count 8.92 K/ul (4.8-10.8)
[2023-08-16 03:43] LABS: Albumin Globulin Ratio 1.6 (0.9-2); Albumin Level 4.3 gm/dl (3.4-5.0); BUN Creatinine Ratio 21.8 (10-20); Bilirubin,Total 0.3 mg/dl (0.2-1.0); Calcium 9.2 mg/dl (8.6-10.3); Est GFR (African American) 110.4 ml/min; Est GFR (Non-African American) 95.2 ml/min; Globulin 2.7 gm/dl (2.5-4.0); Potassium 3.8 mmol/L (3.5-5.1)
[2023-08-16 04:13] LABS: Base Excess VBG -4.9 mEq/L; HCO3 VBG 20 mmol/L; Oxygen Saturation VBG 93.8 %; PCO2 VBG 35 mmHg (38-50); PO2 VBG 69 mmHg; pH VBG 7.36 (7.36-7.41)
[2023-08-16 04:33] LABS: Appearance Urine Clear (Clear); Bilirubin Urine Negative (Negative); Blood Urine Negative (Negative); Color Urine Yellow; Glucose Urine UA 3+ (Negative); Ketones Urine Trace (Negative); Leukocyte Esterase Urine Negative (Negative); Nitrite Urine Negative (Negative); Protein Urine Negative (Negative); Specific Gravity Urine <= 1.005 (1.000-1.030); Urobilinogen Urine Negative (Negative); pH Urine 5.5 (4.5-7.5)
[2023-08-16] MEDS ORDERED: MODERATE STRESS LEVEL ONE (04:33)
[2023-08-16] MEDS ORDERED: INSULIN PROTOCOL GOAL RANGE ONE (04:33)
[2023-08-16] MEDS ORDERED: STAT IV Infusion **Titration per Protocol STA ×2 (04:33→08:32)
[2023-08-16 04:35] LABS: Pregnancy Test, Serum Negative (Negative)
[2023-08-16] MEDS ORDERED: SODIUM CHLORIDE 0.9% 500 ML IV ONE (04:45)
[2023-08-16] MEDS ORDERED: INSULIN REGULAR 250 UNITS in SODIUM CHLORIDE 0.9% 247.5 ML IV SCH ×2 (04:45→08:45)
[2023-08-16] MEDS ORDERED: fentaNYL citrate PF 100 MCG/2 ML VIAL IV STA (04:45)
[2023-08-16] MEDS ORDERED: NovoLIN-R BOLUS FROM BAG IV ONE (04:45)
[2023-08-16] MEDS ORDERED: OPTIRAY 320 100ml IV ONE (05:16)
[2023-08-16] MEDS ORDERED: CEFEPIME 2,000 MG/20 ML VIAL IV STA (07:26)
--- NOTE | 2023-08-16 07:44 | CT Scan Report ---
CT OF THE ABDOMEN AND PELVIS WITH CONTRAST CLINICAL HISTORY: right flank pain, recent pyelo new trauma COMPARISON STUDY: CT of the abdomen and pelvis July 23, 2023. TECHNIQUE: Following IV administration of 92 mL of Optiray, axial images of the abdomen and pelvis we re obtained from the lung bases to the proximal femurs. Images were reviewed in the axial, sagittal, and coronal planes. IV contrast was administered without complication. Automated exposure control wa s utilized for the study. A dose lowering technique was utilized adhering to the principles of ALARA . Oral contrast was administered. CT DOSE: 586.51 mGy.cm FINDINGS: Lung bases are unremarkable. No pneumatosis, free air or portal venous gas is present. Live r, spleen, adrenal glands and pancreas are unremarkable. Moderate right hydronephrosis is unchanged s mae earlier exams dating back to February 27, 2022. Duplicated right collecting system is again noted. The re is a subtle 1.5 cm ill-defined hypoenhancing focus within the upper pole of the right kidney. This slightly extends into the perinephric space. There is trace adjacent perinephric stranding. No drain able fluid collection is noted. There are no ureteral calculi. Bladder is distended. There is no evid ence for a bowel obstruction reduction. The caliber and wall thickness of small and large bowel are n ormal. IMPRESSION: 1. Subtle 1.5 cm ill-defined hypoenhancing focus within the upper pole of the right kidney that sligh tly extends into the perinephric space with trace right perinephric stranding. This favors pyelonephr itis with phlegmon formation. No drainable fluid collection. Although less likely, a traumatic etiolo gy cannot be excluded given the clinical history. Close clinical follow-up is recommended. If progres sive symptoms, follow-up CT with IV contrast is recommended to ensure stability. 2. No change in moderate right hydronephrosis with duplicated right collecting system. This is chroni c. ACT 112: Negative or not required by law. Electronically signed by: Jax Weir M.D. 08/16/2023 7:42 AM
[2023-08-16] MEDS ORDERED: PHARMACY GLYCEMIC MGMT CONSULT PRN (08:32)
[2023-08-16] MEDS ORDERED: DKA GOAL RANGE 150-250 mg/dl ONE (08:32)
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
[2023-08-16] MEDS ORDERED: PLASMA-LYTE A 1,000 ML IV SCH (08:45)
--- NOTE | 2023-08-16 08:53 | XRay Report ---
XR chest 1V portable CLINICAL HISTORY: Abdominal COMPARISON STUDY: No previous studies for comparison. FINDINGS: Lung volumes are normal. Lungs are clear. There is no pneumothorax or pleural effusion. Car diac size is normal. Mediastinal contours are normal. There is no evidence for pulmonary edema. IMPRESSION: No acute cardiopulmonary findings. ACT 112: Negative or not required by law. Electronically signed by: Jax Weir M.D. 08/16/2023 8:51 AM
[2023-08-16] MEDS ORDERED: PENDING D5 1/2NS+20mEq KCL IVF SCH (09:00)
[2023-08-16] MEDS ORDERED: PENDING 1/2NSS+40mEq KCL IVF SCH (09:00)
[2023-08-16 09:24] LABS: Anion Gap 8 (3-11); BUN Creatinine Ratio 19.6 (10-20); Blood Urea Nitrogen 11 mg/dl (6-23); Calcium 8.6 mg/dl (8.6-10.3); Carbon Dioxide 23 mmol/L (21-32); Chloride 105 mmol/L (98-107); Est GFR (African American) > 150.0 ml/min; Est GFR (Non-African American) 133.3 ml/min; Glucose 230 mg/dl (70-99(Fasting)); Magnesium 1.7 mg/dl (1.7-2.4); Phosphorus 3.6 mg/dl (2.5-4.9); Potassium 3.8 mmol/L (3.5-5.1); Sodium 136 mmol/L (136-145)
[2023-08-16] MEDS ORDERED: GLUCOSE 10 TAB/TUBE PO PRN (10:00)
[2023-08-16] MEDS ORDERED: GLUCOSE 40% GEL 15 GM TUBE PO PRN (10:00)
[2023-08-16] MEDS ORDERED: CARBOHYDRATES FOR HYPOGLYCEMIA PO PRN (10:00)
[2023-08-16] MEDS ORDERED: DEXTROSE 50% 50 ML SYRINGE IV PRN (10:00)
[2023-08-16] MEDS ORDERED: D5W AND 1/2NSS + 20MEQ KCL 20 MEQ/1,000 ML BAG IV SCH (10:00)
[2023-08-16] MEDS ORDERED: LANTUS PER UNIT CHARGE SC ONE (10:00)
[2023-08-16] MEDS ORDERED: GLUCAGON FOR INJ 1 MG VIAL IM PRN (10:00)
[2023-08-16] MEDS ORDERED: buPROPion SR 100 MG TABCR PO STA ×2 (10:04→10:11)
[2023-08-16] MEDS ORDERED: MoRPHine SULFATE 2 MG/ML CARP IV STA (10:07)
[2023-08-16] MEDS: INSULIN ASPART PER UNIT CHARGE SC SCH ×5 (10:21→21:44)
--- NOTE | 2023-08-16 10:24 | Ultrasound Report ---
RENAL ULTRASOUND CLINICAL HISTORY: focus on right upper pole kidney lesion COMPARISON STUDY: CT of the abdomen and pelvis performed earlier today. TECHNIQUE: Sonography of the kidneys and the urinary bladder was performed. FINDINGS: The right kidney measures 11.8 cm and the left measures 9.1 cm. Right hydronephrosis is unc hanged from earlier exams. Several punctate right renal calculi are present. There is trace fluid adj acent to the upper pole the right kidney. Slight heterogeneity of pole of the right kidney is noted. This is better depicted on prior CT. There is no left hydronephrosis. Bladder is unremarkable. Ureter al jets were not identified. IMPRESSION: 1. Slight heterogeneity upper pole of the right kidney with trace right perinephric fluid. This is be tter depicted on prior CT and favors pyelonephritis. However, a traumatic etiology could appear simil ar and close clinical follow-up is recommended. 2. Punctate right renal calculi. 3. Moderate right hydronephrosis. This is unchanged since CT of February 27, 2022 and likely chronic. ACT 112: Negative or not required by law. Electronically signed by: Jax Weir M.D. 08/16/2023 10:22 AM
[2023-08-16] MEDS: ACETAMINOPHEN 325 MG TAB PO SCH ×4 (10:37→21:45)
[2023-08-16] MEDS ORDERED: INSULIN ASPART PER UNIT CHARGE SC SCH (11:30)
[2023-08-16] MEDS ORDERED: Nursing to Pharmacy Communication SCH (13:15)
[2023-08-16 13:20] LABS: Anion Gap 4 (3-11); BUN Creatinine Ratio 20.8 (10-20); Blood Urea Nitrogen 11 mg/dl (6-23); Calcium 8.8 mg/dl (8.6-10.3); Carbon Dioxide 26 mmol/L (21-32); Chloride 106 mmol/L (98-107); Creatinine Clr Calc Pharmacy 151.1 ml/min; Est GFR (African American) > 150.0 ml/min; Est GFR (Non-African American) 135.7 ml/min; Glucose 143 mg/dl (70-99(Fasting)); Magnesium 1.8 mg/dl (1.7-2.4); Phosphorus 3.7 mg/dl (2.5-4.9); Potassium 3.9 mmol/L (3.5-5.1); Sodium 136 mmol/L (136-145)
--- NOTE | 2023-08-16 13:52 | Pharmacy Report ---
Pharmacy Glycemic Short Note 2 - Date of Service August 16, 2023 - Glycemic Short BSG Results (Last 24 hours): 08/16/23 08/16/23 08/16/23 02:07 02:10 06:02 Glucose 515 H* POC Glucose 464 H* 382 H* 08/16/23 08/16/23 08/16/23 08:38 10:59 12:04 Glucose 230 H POC Glucose 190 H 145 H 08/16/23 12:48 Glucose 143 H POC Glucose OUTPATIENT ANTIDIABETIC REGIMEN: * Lantus 10 units SQ daily * HbA1C = 14.9% (07/23/23) ASSESSMENT: * Ms Lopez is a 22 y/o F with a PMH of T1DM who presents with mild DKA. Patient was initiated on insulin infusion around 0300. * By 1000, patient's lytes had normalized and drip transition begun. * Lantus 10 units SQ x 1 (dosing based upon previous admission where this dose produced good results coming off insulin infusion). * Novolog based upon previous admission. * Per discussion with provider, dextrose-containing fluids d/c'ed at 1100 and diet initiated. PLAN FOR INPATIENT GLYCEMIC CONTROL: * Hold outpatient oral diabetes medications * Basal insulin * Lantus 10 units SQ x 1. Ongoing doses to be determined on 08/17/23. * Bolus insulin * NovoLog per scale ACHS or Q6hrs while NPO * Goal Range: Low 110 mg/dL - High 140 mg/dL * Correction Factor: 35 mg/dL/unit * Nutritional / Prandial insulin per carb ratio of 1 unit per 12 grams CHO consumed
[2023-08-16] MEDS ORDERED: DC IV INSULIN INFUSION 1 EA DEVI ONE (16:00)
[2023-08-16] MEDS: ONDANSETRON INJ 2 MG/ML 2 ML VIAL IV PRN (17:39)
[2023-08-16] MEDS: MoRPHine SULFATE 2 MG/ML CARP IV PRN (18:42)
[2023-08-16] MEDS: buPROPion SR 100 MG TABCR PO SCH (21:45)
[2023-08-17 06:37] LABS: Hematocrit (blood only) 38.5 % (37.0-47.0); Hemoglobin 12.8 g/dl (12.0-16.0); Mean Corpuscular Hemoglobin 30.8 pg (25.0-34.0); Mean Corpuscular Hgb Conc 33.2 g/dL (32.0-36.0); Mean Corpuscular Volume 92.8 fL (80.0-100.0); Mean Platelet Volume 9.9 fL (9.4-12.4); Platelet Count 306 K/uL (130-400); RDW Coefficient of Variation 12.6 % (11.5-14.5); Red Blood Count 4.15 M/uL (4.20-5.40); White Blood Count 6.96 K/ul (4.8-10.8)
[2023-08-17] MEDS: ACETAMINOPHEN 325 MG TAB PO SCH ×4 (08:21→20:29)
[2023-08-17] MEDS: buPROPion SR 100 MG TABCR PO SCH ×2 (08:21→20:29)
[2023-08-17] MEDS: INSULIN ASPART PER UNIT CHARGE SC SCH ×5 (08:59→23:47)
[2023-08-17] MEDS: MoRPHine SULFATE 2 MG/ML CARP IV PRN (09:00)
[2023-08-17] MEDS: LANTUS PER UNIT CHARGE SC SCH (09:00)
[2023-08-17] MEDS ORDERED: POTASSIUM CHLORIDE CRTAB 20 MEQ TABCR PO STA (09:05)
[2023-08-17] MEDS: ONDANSETRON INJ 2 MG/ML 2 ML VIAL IV PRN (12:14)
[2023-08-17] MEDS ORDERED: oxyCODONE HCL IR 5 MG TAB (IMMEDIATE RELEASE) PO STA (12:19)
[2023-08-17] MEDS ORDERED: LIDOCAINE 5% 1 PATCH TD STA (12:25)
[2023-08-17] MEDS: CEFEPIME 2,000 MG in SYRINGE 0 ML IV SCH ×2 (12:41→23:58)
--- NOTE | 2023-08-17 13:33 | Pharmacy Report ---
Pharmacy Glycemic Short Note 2 - Date of Service August 17, 2023 - Glycemic Short BSG Results (Last 24 hours): 08/16/23 08/16/23 08/17/23 16:51 21:19 07:40 POC Glucose 248 H 195 H 268 H 08/17/23 11:40 POC Glucose 295 H OUTPATIENT ANTIDIABETIC REGIMEN: * Lantus 10 units SQ daily * HbA1C = 14.9% (07/23/23) ASSESSMENT: 08/17/23 * BSGs once patient taken off insulin drip were 145-248-195 mg/dL. Fasting today is 268 mg/dL. * Will continue with Lantus 10 units SQ daily (0.16 units/kg) * BSGs trend upwards so will tighten CR. BACKGROUND * Ms Lopez is a 22 y/o F with a PMH of T1DM who presents with mild DKA. Patient was initiated on insulin infusion around 0300. * By 1000, patient's lytes had normalized and drip transition begun. * Lantus 10 units SQ x 1 (dosing based upon previous admission where this dose produced good results coming off insulin infusion). * Novolog based upon previous admission. * Per discussion with provider, dextrose-containing fluids d/c'ed at 1100 and diet initiated. PLAN FOR INPATIENT GLYCEMIC CONTROL: * Hold outpatient oral diabetes medications * Basal insulin * Lantus 10 units SQ daily * Bolus insulin * NovoLog per scale ACHS or Q6hrs while NPO * Goal Range: Low 110 mg/dL - High 140 mg/dL * Correction Factor: 35 mg/dL/unit * Nutritional / Prandial insulin per carb ratio of 1 unit per 8 grams CHO consumed
[2023-08-17] MEDS ORDERED: oxyCODONE HCL 10 MG TABCR (OxyCONTIN) PO SCH (21:00)
[2023-08-17] MEDS ORDERED: ENOXAPARIN INJ 40 MG/0.4 ML SYR SQ ONE (22:05)
--- NOTE | 2023-08-17 22:16 | Hospitalist Progress Note ---
Date of Service August 17, 2023 Assessment & Plan (1) DKA (diabetic ketoacidosis): Plan: Patient being admitted with DKA Anion gap Hyperglycemia Placed on insulin drip IVF, DKA protocol placed. On 08/17, this appears to have resolved (2) Pyelonephritis: Plan: Imaging shows evidence of pyelonephritis awaiting cultures called lab for urine same to obtain a culture. Imaging showing : Slight heterogeneity upper pole of the right kidney with trace right perinephric fluid. This is better depicted on prior CT and favors pyelonephritis. However, a traumatic etiology could appear similar and close clinical follow-up is recommended. Possible sign of infection, however, UA does appear clear. Will restart antibiotics on 08/17, Patient received dose in AM of 08/16 Ultrasound of kidney shows: a renal calculi, could this be an infected stone. Admission and Anticipated Discharge Date Admission Date: August 16, 2023 Subjective 22 yo female continues back pain. She is requesting more pain medicine. Her mother is at bedside. Patient denies any fevers. Review of Systems Constitutional: no fever, no body aches and no weakness Eyes: no blind spots Ear, Nose, Mouth, Throat: no ear pain Respiratory: no cough Cardiovascular: no chest pain Gastrointestinal: no abdominal pain Genitourinary: no dysuria Musculoskeletal: + back pain Integumentary: no rash Neurologic: no gait abnormality Psychiatric: no hallucinations Endocrine: no fatigue Hematologic / Lymphatic: no easy bleeding Allergy / Immunological: no GI upset with certain foods Physical Exam Constitutional: WD/WN, vitals as above Eyes: PERRL, conjunctivae normal, anicteric sclerae ENMT: external ear and nose normal, oropharynx normal Neck: trachea midline, no thyromegaly Respiratory: normal respiratory effort, lungs clear to auscultation Cardiovascular: RRR, no murmur, no edema Gastrointestinal (Abdomen): normal bowel sounds, soft, nontender, no hepatosplenomegaly Musculoskeletal: no cyanosis or clubbing, extremities motor strength 5/5 Skin: no rashes, warm and dry Neurologic: patellar DTR's 2+ bilat, sensation intact Psychiatric: A+Ox3, euthymic affect Results & Data Results & Data Vital Signs (Past 12 Hours) Vital Signs Temp Pulse Resp BP Pulse Ox O2 Del Method 08/17/23 20:37 36.8 C 74 16 108/71 97 Room Air 08/17/23 14:58 36.4 C L 89 15 129/89 95 Room Air PG Care Time/CCT Total # of Minutes Spent Total Time Spent with Patient: Total time spent is greater than 50% in coordination of care (as documented) at patient's floor/unit and/or counseling patient: Coding Level of Care Code 65352 SUB INP/OBS CARE 3/50MIN Diagnoses DKA (diabetic ketoacidosis) E10.10 Diabetes mellitus complication detail: without coma Diabetes mellitus type: type 1 Pyelonephritis N12 Time Spent (min) 50 (1) DKA (diabetic ketoacidosis) Diabetes mellitus complication detail: without coma Diabetes mellitus type: type 1 Qualified Code(s): E10.10 - Type 1 diabetes mellitus with ketoacidosis without coma
[2023-08-18 06:36] LABS: Hematocrit (blood only) 40.8 % (37.0-47.0); Hemoglobin 13.9 g/dl (12.0-16.0); Mean Corpuscular Hemoglobin 31.2 pg (25.0-34.0); Mean Corpuscular Hgb Conc 34.1 g/dL (32.0-36.0); Mean Corpuscular Volume 91.7 fL (80.0-100.0); Mean Platelet Volume 9.6 fL (9.4-12.4); Platelet Count 315 K/uL (130-400); RDW Coefficient of Variation 12.5 % (11.5-14.5); RDW Standard Deviation 41.7 fL (36.4-46.3); Red Blood Count 4.45 M/uL (4.20-5.40); White Blood Count 8.23 K/ul (4.8-10.8)
[2023-08-18 06:53] LABS: C Reactive Protein < 0.50 mg/dl (0-0.5)
[2023-08-18] MEDS: ACETAMINOPHEN 325 MG TAB PO SCH ×3 (08:39→17:51)
[2023-08-18] MEDS: buPROPion SR 100 MG TABCR PO SCH (08:39)
[2023-08-18] MEDS ORDERED: LIDOCAINE 5% 1 PATCH TD SCH (09:00)
[2023-08-18] MEDS: oxyCODONE HCL IR 5 MG TAB (IMMEDIATE RELEASE) PO PRN ×3 (09:20→18:41)
[2023-08-18] MEDS: LANTUS PER UNIT CHARGE SC SCH (09:21)
[2023-08-18] MEDS: INSULIN ASPART PER UNIT CHARGE SC SCH ×3 (09:21→17:51)
[2023-08-18 10:11] LABS: Anion Gap 6 (3-11); BUN Creatinine Ratio 21.9 (10-20); Blood Urea Nitrogen 16 mg/dl (6-23); Calcium 9.8 mg/dl (8.6-10.3); Carbon Dioxide 27 mmol/L (21-32); Chloride 100 mmol/L (98-107); Creatinine Clr Calc Pharmacy 109.7 ml/min; Est GFR (African American) 136.5 ml/min; Est GFR (Non-African American) 117.7 ml/min; Glucose 276 mg/dl (70-99(Fasting)); Potassium 4.8 mmol/L (3.5-5.1); Sodium 133 mmol/L (136-145)
[2023-08-18] MEDS: CEFEPIME 2,000 MG in SYRINGE 0 ML IV SCH (13:33)
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
[2023-08-18] MEDS ORDERED: AMOXICILLIN/CLAVULANATE 875 MG TAB PO ONE (18:30)
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
[2023-08-18] MEDS ORDERED: ENOXAPARIN INJ 40 MG/0.4 ML SYR SQ SCH (21:00)
[2023-08-19] MEDS ORDERED: LANTUS PER UNIT CHARGE SC SCH (09:00)
== END 2023-08-18 19:35 | disposition home or self-care (01) | DRG 638 ==
LOC: ED 01:54 → 3E 08:15

== ENCOUNTER 2023-12-04 12:21 | Observation (INO) ==
[2023-12-04] MEDS: SODIUM CHLORIDE 0.9% 1,000 ML IV SCH (13:30)
[2023-12-04] MEDS: ONDANSETRON INJ 2 MG/ML 2 ML VIAL IV STA (13:33)
[2023-12-04 13:47] LABS: Basophils # (auto) 0.06 K/uL (0.00-0.20); Basophils % (auto) 0.5 %; Hemoglobin 15.8 g/dl (12.0-16.0); Immature Granulocytes # (auto) 0.06 K/uL (0.01-0.20); Immature Granulocytes % (auto) 0.5 %; Lymphocytes # (auto) 1.23 K/uL (1.20-3.40); Lymphocytes % (auto) 10.5 %; Mean Corpuscular Hemoglobin 31.3 pg (25.0-34.0); Mean Corpuscular Hgb Conc 35.1 g/dL (32.0-36.0); Mean Corpuscular Volume 89.1 fL (80.0-100.0); Mean Platelet Volume 10.4 fL (9.4-12.4); Monocytes # (auto) 0.46 K/uL (0.11-0.59); Monocytes % (auto) 3.9 %; Neutrophils # (auto) 9.87 K/uL (1.40-6.50); Neutrophils % (auto) 84.6 %; Platelet Count 361 K/uL (130-400); RDW Coefficient of Variation 12.6 % (11.5-14.5); RDW Standard Deviation 40.7 fL (36.4-46.3); Red Blood Count 5.05 M/uL (4.20-5.40); White Blood Count 11.68 K/ul (4.8-10.8)
[2023-12-04 14:02] LABS: Pregnancy Test, Serum Negative (Negative)
--- NOTE | 2023-12-04 14:06 | XRay Report ---
XR chest 1V portable HISTORY: 23 years-old Female overdose drug overdose COMPARISON: 08/16/2023 TECHNIQUE: AP view of the chest FINDINGS: Cardiomediastinal and hilar silhouettes are within normal limits. No pneumothorax, pleural effusion o r airspace consolidation. Mild right hemidiaphragmatic elevation. Bones appear grossly intact. IMPRESSION: No acute process. ACT 112: Negative or not required by law. The above report was generated using voice recognition software. It may contain grammatical, syntax o r spelling errors. Electronically signed by: Dimitry Danielson M.D. 12/04/2023 2:04 PM
[2023-12-04 14:08] LABS: Albumin Globulin Ratio 1.9 (0.9-2); Albumin Level 5.5 gm/dl (3.4-5.0); BUN Creatinine Ratio 15.2 (10-20); Bilirubin,Total 0.6 mg/dl (0.2-1.0); Calcium 9.9 mg/dl (8.6-10.3); Creatinine Clr Calc Pharmacy 75.9 ml/min; Est GFR (African American) 102.4 ml/min; Est GFR (Non-African American) 88.4 ml/min; Globulin 2.9 gm/dl (2.5-4.0); Magnesium 2.1 mg/dl (1.7-2.4); Potassium 4.5 mmol/L (3.5-5.1); Total Protein 8.4 gm/dl (6.0-8.3)
[2023-12-04 14:09] LABS: Acetaminophen < 3 ug/ml (10-30); Salicylate < 3.0 mg/dl (3.0-30); Troponin I High Sensitivity 17.4 pg/ml (0-14)
--- NOTE | 2023-12-04 14:12 | Emergency Department Note ---
Impression & Plan DKA (diabetic ketoacidosis), Diabetes mellitus type 1, Elevated troponin I level ED Provider Note NAME: LORE CHARLTON AGE: 23 SEX: F ARRIVES VIA: Walk-In INFORMANT: Patient ED PROVIDER(S): Silas Merritt MD CHIEF COMPLAINT: Vomit. PLAN: Disposition: Admit MEDICAL DECISION MAKING: The patient is a pleasant 23-year-old woman with past medical type 1 diabetes does not use an insulin pump but has a Dexcom who presents to the emergency department via walk-in for acute onset nausea, vomiting this morning that has been persistent. Patient ports she was feeling fine yesterday and denies any fevers, chills, cough congestion, GI or symptoms. She reports she did drink alcohol because it was Friday night karaoke. She denies drinking alcohol frequently other than socially on weekends and karaoke night. Upon my evaluation the patient is results had already returned and it was clear that the patient is in DKA. She was tearful regarding this fact and was anxious about being in the hospital for prolonged time and missing schoolwork. She is a senior at [employer]. Of note, the patient did arrive to emergency department during time of high volume, acuity and prolonged emergency department waiting times. Critical pathways initiated from triage. On evaluation the patient is ill-appearing, uncomfortable, and oriented to self place and situation though some confusion in the setting of DKA. Heart rate was in the 140s improved to the 130s with vision of IV fluids and blood pressure 140s/110s. O2 sats was 97% on room air. Abdomen is nontender. She does have a distended bladder as she reports she has needed to go the bathroom but has been "hooked up to the monitor." EKG without overt acute ischemia. CXR negative for acute cardiopulmonary process per my personal preliminary review/interpretation. WBC 11.6, nonspecific. H/H and platelets within normal limits. Chemistry with pH of 7.3 with component of respiratory compensation with pCO2 of 26. Chemistry demonstrates anion gap metabolic acidosis with anion gap of 27 and bicarbonate of 14 with glucose of 495. Sodium is 138 correcting to 144 consistent with patient's clinical dry appearance. LFTs are unremarkable. High-sensitivity troponin 17.4, nonspecific. Lipase not elevated. hCG negative. Medical alcohol is pending. Patient ordered for 2 L of IV fluids with plan to initiate insulin drip subsequently following repeat BSG and then initiation of maintenance fluids. Patient is not pleased with the fact of being admitted but she understands that this is necessary. I did offer to review the patient's condition and plan with her parents over the phone but she declined this. Case was d/w Dr. Walsh [facility] hospitalist who will evaluate the patient for admission. Further management per admitting team. Triage Nursing notes reviewed and agree them. Prior/external medical records reviewed Vital Signs: reviewed Differential diagnosis: Gastroenteritis, food borne illness, infections, appendicitis, diverticulitis, inflammatory bowel disease, obstruction, GI bleed, biliary pathology, volvulus, as well as other pathologies. ER treatment provided: See below. Diagnostics interpreted by me: ECG: Sinus tachycardia with heart rate 147 bpm, no ectopy, no overt ST elevation or depression, QTc 532, QRS 70 Cardiac Monitoring: An order for continuous cardiac monitoring was placed and demonstrated Sinus tachycardia with heart rate 147 bpm, no ectopy. Laboratory studies: See below Imaging studies: See below Consultation(s): Case was d/w Dr. Walsh [facility] hospitalist who will evaluate the patient for admission. HPI: The patient is a pleasant 23-year-old woman with past medical type 1 diabetes does not use an insulin pump but has a Dexcom who presents to the emergency department via walk-in for acute onset nausea, vomiting this morning that has been persistent. Patient ports she was feeling fine yesterday and denies any fevers, chills, cough congestion, GI or symptoms. She reports she did drink alcohol because it was Friday night karaoke. She denies drinking alcohol frequently other than socially on weekends and karaoke night. Upon my evaluation the patient is results had already returned and it was clear that the patient is in DKA. She was tearful regarding this fact and was anxious about being in the hospital for prolonged time and missing schoolwork. She is a senior at [employer]. ROS: See above HPI for pertinent positives & negatives. A total of 10 systems reviewed and were otherwise negative. VITALS:See Below PHYSICAL EXAMINATION: GENERAL: Awake, alert, ill-appearing, in no distress HENT: Normocephalic, atraumatic. Oropharynx with dry mucous membranes and otherwise unremarkable. EYES: Normal conjunctiva. Sclera non-icteric. NECK: Supple. No nuchal rigidity. FROM. No JVD. RESPIRATORY: Clear to auscultation. CARDIAC: Tachydcardic rate, normal rhythm. Extremities warm and well perfused. Pulses equal. ABDOMEN: Soft, non-distended. No tenderness to palpation. No rebound or guarding. No masses. RECTAL: Deferred. MUSCULOSKELETAL: Chest examination reveals no tenderness. The back is symmetrical on inspection without obvious abnormality. There is no CVA tenderness to palpation. No joint edema. LOWER EXTREMITIES: Calves are equal size bilaterally and non-tender. No edema. No discoloration. NEURO: Normal sensorium. No sensory or motor deficits noted. SKIN: No rash or jaundice noted. ED COURSE: Critical Care: I have personally spent greater than 45 minutes of critical care time in the direct management of this patient. This includes bedside care, interpretation of diagnostic studies, and testing, discussion with consultants, patient, and family members, and other required patient management activities. This 45 minutes is in excess of all separately billable procedures. Silas Merritt MD Past Med/Surg History Medical History DKA (diabetic ketoacidosis) Gastroparesis Diabetes mellitus type 1 Surgical History No pertinent past surgical history Family History Other No pertinent family history Social History Smoking Status: Never smoker Tobacco Type: E-cigarettes / Vaping Second Hand Exposure: No; Do You Dip or Chew Tobacco: No; Hx Alcohol Use: Yes Alcohol type: hard liquor Hx Substance Use: No Preferred Language: Congolese Communication Ability: Effective Crook Operator Required: No Beliefs That Will Affect Care: None Current Living Situation: Alone Current Living Situation Comment: apartment with roommates Other Information That Helps Us Care for You: No Feels Safe at Home: Yes Safety Concerns: Feels Safe At This Time Assistive Devices: None Allergies Allergies Allergy/AdvReac Type Severity Reaction Status Date / Time No Known Allergies Allergy Verified 12/04/23 15:07 Home Meds Home Medications Medication Instructions Recorded Confirmed spironolactone 100 mg tablet 100 mg PO QAM 07/23/23 12/04/23 bupropion HCl 300 mg 24 hr tablet, 300 mg PO QAM 12/04/23 12/04/23 extended release insulin glargine 100 unit/mL 0 unit subcut PM 12/04/23 12/04/23 subcutaneous solution lidocaine 5 % topical patch 0 patch transdermal QAM 12/04/23 12/04/23 Previous Rx's Medication Instructions Recorded acetaminophen 325 mg tablet 650 mg (2 x 325 mg) PO QID #120 08/18/23 tabs Results & Data (ED) Vital Signs Vital Signs - 24 hr 12/04/23 12:34 12/04/23 13:03 12/04/23 15:00 Temperature 36.4 C L Temperature Source Temporal Artery Scan Pulse Rate 150 H Pulse Rate [Right Finger] 142 H 117 H Pulse Rhythm [Right Finger] Regular Respiratory Rate 18 22 18 Respiratory Effort / Characteristics Non-Labored Spontaneous Non-Labored Respiratory Depth Normal Normal Blood Pressure 150/105 H Blood Pressure [Right Arm] 145/113 H 127/92 Blood Pressure Mean 120 Blood Pressure Mean [Right Arm] 123 103 Pulse Oximetry 96 97 96 Oxygen Delivery Method Room Air Room Air Room Air Sepsis Recent Fever Within 48 Hours No Sepsis New/Unexplained Change in Mental Status No Sepsis Action Taken by Nursing No Action Required 12/04/23 16:00 12/04/23 16:00 12/04/23 16:10 Temperature Temperature Source Pulse Rate 114 H 113 H Pulse Rate [Right Finger] Pulse Rhythm [Right Finger] Respiratory Rate 17 Respiratory Effort / Characteristics Respiratory Depth Blood Pressure 107/73 Blood Pressure [Right Arm] Blood Pressure Mean 83 Blood Pressure Mean [Right Arm] Pulse Oximetry 100 Oxygen Delivery Method Sepsis Recent Fever Within 48 Hours Sepsis New/Unexplained Change in Mental Status Sepsis Action Taken by Nursing Laboratory Data Attestation: I reviewed the patient's lab results. 12/04/23 12:55 12/04/23 18:27 Lab Results 12/04/23 12/04/23 12/04/23 Range/Units 12:55 13:08 14:10 WBC 11.68 H (4.8-10.8) K/ul RBC 5.05 (4.20-5.40) M/uL Hgb 15.8 (12.0-16.0) g/dl Hct 45.0 (37.0-47.0) % MCV 89.1 (80.0-100.0) fL MCH 31.3 (25.0-34.0) pg MCHC 35.1 (32.0-36.0) g/dL RDW Std Deviation 40.7 (36.4-46.3) fL RDW Coeff of Josefina 12.6 (11.5-14.5) % Plt Count 361 (130-400) K/uL MPV 10.4 (9.4-12.4) fL Immature Gran % (Auto) 0.5 % Neut % (Auto) 84.6 % Lymph % (Auto) 10.5 % Reeves % (Auto) 3.9 % Eos % (Auto) 0.0 % Baso % (Auto) 0.5 % Neut # (Auto) 9.87 H (1.40-6.50) K/uL Lymph # (Auto) 1.23 (1.20-3.40) K/uL Reeves # (Auto) 0.46 (0.11-0.59) K/uL Eos # (Auto) 0.00 (0.00-0.50) K/uL Baso # (Auto) 0.06 (0.00-0.20) K/uL Immature Gran # (Auto) 0.06 (0.01-0.20) K/uL PT 10.3 (9.0-12.0) Seconds INR 0.9 (0.9-1.1) APTT 24 (21-31) Seconds PTT Ratio 0.9 VBG pH 7.30 L (7.36-7.41) VBG pCO2 26 L (38-50) mmHg VBG pO2 74 mmHg VBG HCO3 13 mmol/L VBG O2 Saturation 94.9 % VBG Base Excess -11.7 mEq/L Sodium 138 (136-145) mmol/L Potassium 4.5 (3.5-5.1) mmol/L Chloride 97 L (98-107) mmol/L Carbon Dioxide 14 L (21-32) mmol/L Anion Gap 27 H (3-11) BUN 14 (6-23) mg/dl Creatinine 0.92 (0.6-1.2) mg/dl Est Cr Clr Drug Dosing 75.9 ml/min Est GFR ( Amer) 102.4 ml/min Est GFR (Non-Af Amer) 88.4 ml/min BUN/Creatinine Ratio 15.2 (10-20) Glucose 495 H* (70-99(Fasting)) mg/dl POC Glucose 444 H* (70-99) mg/dl Calcium 9.9 (8.6-10.3) mg/dl Phosphorus 5.2 H (2.5-4.9) mg/dl Magnesium 2.1 (1.7-2.4) mg/dl Total Bilirubin 0.6 (0.2-1.0) mg/dl AST 16 (13-39) U/L ALT 16 (7-52) U/L Alkaline Phosphatase 127 H (34-104) U/L Total Creatine Kinase 35 (26-192) U/L Troponin I High Sens 17.4 H (0-14) pg/ml Total Protein 8.4 H (6.0-8.3) gm/dl Albumin 5.5 H (3.4-5.0) gm/dl Globulin 2.9 (2.5-4.0) gm/dl Albumin/Globulin Ratio 1.9 (0.9-2) Lipase 16 (11-82) U/L HCG, Qual Negative (Negative) Urine Color Urine Appearance (Clear) Urine pH (4.5-7.5) Ur Specific Sheridan (1.000-1.030) Urine Protein (Negative) Urine Glucose (UA) (Negative) Urine Ketones (Negative) Urine Blood (Negative) Urine Nitrite (Negative) Urine Bilirubin (Negative) Urine Urobilinogen (Negative) Ur Leukocyte Esterase (Negative) Salicylates < 3.0 L (3.0-30) mg/dl Urine Opiates Screen (Neg) Ur Methadone, Qual (Neg) Acetaminophen < 3 L (10-30) ug/ml Urine Barbiturates (Neg) Ur Phencyclidine (PCP) (Neg) U Amphetamin/Meth Scrn (Neg) MDMA (Ecstasy) Screen (Neg) U Benzodiazepines Scrn (Neg) Ur Cocaine Metabolite (Neg) U Marijuana (THC) Screen (Neg) Ethyl Alcohol mg/dL < 10.0 (<10.0) mg/dl Adenovirus (PCR) (NotDetected) B. pertussis DNA (PCR) (NotDetected) B.parapertussis DNA PCR (NotDetected) C. pneumoniae DNA (PCR) (NotDetected) Coronavirus OC43 (PCR) (NotDetected) Coronavirus HKU1 (PCR) (NotDetected) Coronavirus 229E (PCR) (NotDetected) SARS-CoV-2 (PCR) (NotDetected) Coronavirus NL63 (PCR) (NotDetected) Human Metapneumovir PCR (NotDetected) Influenza Type A (PCR) (NotDetected) Influenza Type B (PCR) (NotDetected) M. pneumoniae (PCR) (NotDetected) Parainfluenza 1 (PCR) (NotDetected) Parainfluenza 2 (PCR) (NotDetected) Parainfluenza 3 (PCR) (NotDetected) Parainfluenza 4 (PCR) (NotDetected) RSV (PCR) (NotDetected) Entero/Rhino (PCR) (NotDetected) 12/04/23 12/04/23 12/04/23 Range/Units 14:54 15:20 16:14 WBC (4.8-10.8) K/ul RBC (4.20-5.40) M/uL Hgb (12.0-16.0) g/dl Hct (37.0-47.0) % MCV (80.0-100.0) fL MCH (25.0-34.0) pg MCHC (32.0-36.0) g/dL RDW Std Deviation (36.4-46.3) fL RDW Coeff of Josefina (11.5-14.5) % Plt Count (130-400) K/uL MPV (9.4-12.4) fL Immature Gran % (Auto) % Neut % (Auto) % Lymph % (Auto) % Reeves % (Auto) % Eos % (Auto) % Baso % (Auto) % Neut # (Auto) (1.40-6.50) K/uL Lymph # (Auto) (1.20-3.40) K/uL Reeves # (Auto) (0.11-0.59) K/uL Eos # (Auto) (0.00-0.50) K/uL Baso # (Auto) (0.00-0.20) K/uL Immature Gran # (Auto) (0.01-0.20) K/uL PT (9.0-12.0) Seconds INR (0.9-1.1) APTT (21-31) Seconds PTT Ratio VBG pH (7.36-7.41) VBG pCO2 (38-50) mmHg VBG pO2 mmHg VBG HCO3 mmol/L VBG O2 Saturation % VBG Base Excess mEq/L Sodium (136-145) mmol/L Potassium (3.5-5.1) mmol/L Chloride (98-107) mmol/L Carbon Dioxide (21-32) mmol/L Anion Gap (3-11) BUN (6-23) mg/dl Creatinine (0.6-1.2) mg/dl Est Cr Clr Drug Dosing ml/min Est GFR ( Amer) ml/min Est GFR (Non-Af Amer) ml/min BUN/Creatinine Ratio (10-20) Glucose (70-99(Fasting)) mg/dl POC Glucose 225 H (70-99) mg/dl Calcium (8.6-10.3) mg/dl Phosphorus (2.5-4.9) mg/dl Magnesium (1.7-2.4) mg/dl Total Bilirubin (0.2-1.0) mg/dl AST (13-39) U/L ALT (7-52) U/L Alkaline Phosphatase (34-104) U/L Total Creatine Kinase (26-192) U/L Troponin I High Sens (0-14) pg/ml Total Protein (6.0-8.3) gm/dl Albumin (3.4-5.0) gm/dl Globulin (2.5-4.0) gm/dl Albumin/Globulin Ratio (0.9-2) Lipase (11-82) U/L HCG, Qual (Negative) Urine Color Yellow Urine Appearance Clear (Clear) Urine pH 5.5 (4.5-7.5) Ur Specific Sheridan 1.041 H (1.000-1.030) Urine Protein Negative (Negative) Urine Glucose (UA) 3+ H (Negative) Urine Ketones 4+ H (Negative) Urine Blood Negative (Negative) Urine Nitrite Negative (Negative) Urine Bilirubin Negative (Negative) Urine Urobilinogen Negative (Negative) Ur Leukocyte Esterase Negative (Negative) Salicylates (3.0-30) mg/dl Urine Opiates Screen Pos H (Neg) Ur Methadone, Qual Neg (Neg) Acetaminophen (10-30) ug/ml Urine Barbiturates Neg (Neg) Ur Phencyclidine (PCP) Neg (Neg) U Amphetamin/Meth Scrn Pos H (Neg) MDMA (Ecstasy) Screen Pos H (Neg) U Benzodiazepines Scrn Neg (Neg) Ur Cocaine Metabolite Neg (Neg) U Marijuana (THC) Screen Neg (Neg) Ethyl Alcohol mg/dL (<10.0) mg/dl Adenovirus (PCR) Not Detected (NotDetected) B. pertussis DNA (PCR) Not Detected (NotDetected) B.parapertussis DNA PCR Not Detected (NotDetected) C. pneumoniae DNA (PCR) Not Detected (NotDetected) Coronavirus OC43 (PCR) Not Detected (NotDetected) Coronavirus HKU1 (PCR) Not Detected (NotDetected) Coronavirus 229E (PCR) Not Detected (NotDetected) SARS-CoV-2 (PCR) Not Detected (NotDetected) Coronavirus NL63 (PCR) Not Detected (NotDetected) Human Metapneumovir PCR Not Detected (NotDetected) Influenza Type A (PCR) Not Detected (NotDetected) Influenza Type B (PCR) Not Detected (NotDetected) M. pneumoniae (PCR) Not Detected (NotDetected) Parainfluenza 1 (PCR) Not Detected (NotDetected) Parainfluenza 2 (PCR) Not Detected (NotDetected) Parainfluenza 3 (PCR) Not Detected (NotDetected) Parainfluenza 4 (PCR) Not Detected (NotDetected) RSV (PCR) Not Detected (NotDetected) Entero/Rhino (PCR) Not Detected (NotDetected) Administered Medications Insulin Human Regular 250 (units/ Sodium Chloride) 250 mls @ 2.6 mls/hr IV .Q24H [facility]; Protocol Stop: 01/03/24 14:44 Last Titration: 12/04/23 20:17 Dose: 2.6 units/hr, 2.6 mls/hr Documented By: KANE Co-signed By: KENNY Titration: 12/04/23 19:53 Dose: 2.2 units/hr, 2.2 mls/hr Documented By: KANE Co-signed By: KISHAN Titration: 12/04/23 17:15 Dose: 3.6 units/hr, 3.6 mls/hr Documented By: ZINA Co-signed By: LORY Titration: 12/04/23 16:56 Dose: 3.6 units/hr, 3.6 mls/hr Documented By: ZINA Co-signed By: LORY Titration: 12/04/23 16:18 Dose: 0 units/hr, 0 mls/hr Documented By: ZINA Co-signed By: LORY Admin: 12/04/23 15:10 Dose: 6 units/hr, 6 mls/hr Documented By: ZINA Co-signed By: LORY Potassium Chloride/Dextrose/Sod Cl (D5w And 1/2nss + 20meq Kcl) 20 meq in 1,000 mls @ 100 mls/hr IV .Q10H MARIO Stop: 01/03/24 17:59 Last Admin: 12/04/23 19:51 Dose: 250 mls/hr Documented By: KANE Insulin Aspart (Insulin Aspart Per Unit Charge) 0 units SC Q6 MARIO Stop: 01/03/24 17:59 Last Admin: 12/04/23 20:03 Dose: Not Given Documented By: KANE Discontinued Medications Sodium Chloride (Nss) 1,000 mls @ 999 mls/hr IV .Q1H1M MARIO Stop: 12/04/23 14:30 Last Infusion: 12/04/23 14:30 Dose: Infused Documented By: Admin: 12/04/23 13:30 Dose: 999 mls/hr Documented By: DANTE Sodium Chloride (Nss) 1,000 mls @ 999 mls/hr IV .Q1H1M ONE Stop: 12/04/23 15:12 Last Infusion: 12/04/23 15:45 Dose: Infused Documented By: Admin: 12/04/23 14:45 Dose: 999 mls/hr Documented By: ZINA Famotidine (Pepcid 20mg Iv Push) 20 mg in 5 mls @ 2.5 mls/min IV NOW STA Stop: 12/04/23 14:13 Last Admin: 12/04/23 14:15 Dose: 2.5 mls/min Documented By: DANTE Potassium Chloride/Sodium Chloride (1/2 Nss + 20meq Kcl 1000ml) 20 meq in 1,000 mls @ 250 mls/hr IV .Q4H MARIO Stop: 01/03/24 14:44 Last Infusion: 12/04/23 20:02 Dose: Infused Documented By: Admin: 12/04/23 15:51 Dose: 250 mls/hr Documented By: ZINA Insulin Glargine (Lantus Per Unit Charge) 12 units SC ONE ONE Stop: 12/04/23 20:01 Last Admin: 12/04/23 21:22 Dose: 12 units Documented By: KANE Co-signed By: KENNY Insulin Human Regular (Novolin-R Bolus From Bag) 6 units IV ONE ONE Stop: 12/04/23 14:46 Last Admin: 12/04/23 15:10 Dose: 6 units Documented By: ZINA Co-signed By: LORY Miscellaneous (Dka Goal Range 150-250 Mg/Dl) 1 each N/A ONE ONE Stop: 12/04/23 14:37 Last Admin: 12/04/23 17:25 Dose: 1 each Documented By: ZINA Ondansetron HCl (Ondansetron Inj 2 Mg/Ml 2 Ml Vial) 4 mg IV NOW STA Stop: 12/04/23 13:22 Last Admin: 12/04/23 13:33 Dose: 4 mg Documented By: SHIVA Imaging Data Radiologist's Impression: Chest X-Ray 12/04/23 13:21 XR chest 1V portable HISTORY: 23 years-old Female overdose drug overdose COMPARISON: 08/16/2023 TECHNIQUE: AP view of the chest FINDINGS: Cardiomediastinal and hilar silhouettes are within normal limits. No pneumothorax, pleural effusion or airspace consolidation. Mild right hemidiaphragmatic elevation. Bones appear grossly intact. IMPRESSION: No acute process. ACT 112: Negative or not required by law. The above report was generated using voice recognition software. It may contain grammatical, syntax or spelling errors. Electronically signed by: Dimitry Danielson M.D. 12/04/2023 2:04 PM Discharge Plan Visit Data Chief Complaint: Vomiting Stated Complaint: TRIMMERS, UNABLE TO FORM WORDS VOMITING ED Provider: Silas Merritt Discharge Problem: DKA (diabetic ketoacidosis), Diabetes mellitus type 1, Elevated troponin I level Patient Disposition: Admitted As Inpatient Discharge Instructions Interventions: ED Discharge Assessment Last Done: 12/04/23 18:25 Discharge Problem: DKA (diabetic ketoacidosis) Qualifiers: Diabetes mellitus type: type 1 Diabetes mellitus complication detail: without coma Qualified Code(s): E10.10 - Type 1 diabetes mellitus with ketoacidosis without coma Diabetes mellitus type 1 Qualifiers: Diabetes mellitus complication status: with ketoacidosis Diabetes mellitus complication detail: without coma Qualified Code(s): E10.10 - Type 1 diabetes mellitus with ketoacidosis without coma
[2023-12-04 14:13] LABS: INR 0.9 (0.9-1.1); Partial Thromboplastin Ratio 0.9; Partial Thromboplastin Time 24 Seconds (21-31); Prothrombin Time 10.3 Seconds (9.0-12.0)
[2023-12-04] MEDS: FAMOTIDINE 20MG IV PUSH 20 MG/5 ML SYR IV STA (14:15)
[2023-12-04 14:22] LABS: Base Excess VBG -11.7 mEq/L; HCO3 VBG 13 mmol/L; Oxygen Saturation VBG 94.9 %; PCO2 VBG 26 mmHg (38-50); PO2 VBG 74 mmHg
[2023-12-04] MEDS ORDERED: GLUCOSE 40% GEL 15 GM TUBE PO PRN (14:36)
[2023-12-04] MEDS ORDERED: CARBOHYDRATES FOR HYPOGLYCEMIA PO PRN (14:36)
[2023-12-04] MEDS ORDERED: GLUCOSE 10 TAB/TUBE PO PRN (14:36)
[2023-12-04] MEDS ORDERED: DEXTROSE 50% 50 ML SYRINGE IV PRN (14:36)
[2023-12-04] MEDS ORDERED: GLUCAGON FOR INJ 1 MG VIAL SQ PRN (14:36)
[2023-12-04] MEDS ORDERED: STAT IV Infusion **Titration per Protocol STA (14:36)
[2023-12-04] MEDS: SODIUM CHLORIDE 0.9% 1,000 ML IV ONE (14:45)
[2023-12-04] MEDS: NovoLIN-R BOLUS FROM BAG IV ONE (15:10)
[2023-12-04] MEDS: INSULIN REGULAR 250 UNITS in SODIUM CHLORIDE 0.9% 247.5 ML IV SCH (15:10)
--- NOTE | 2023-12-04 15:12 | Electrocardiogram Report ---
Test Reason : Blood Pressure : / mmHG Vent. Rate : 147 BPM Atrial Rate : 147 BPM P-R Int : 104 ms QRS Dur : 070 ms QT Int : 340 ms P-R-T Axes : 000 -02 052 degrees QTc Int : 532 ms Sinus tachycardia Low voltage QRS Abnormal ECG No previous ECGs available Confirmed by Augustine Payton ([id number]) on 12/04/2023 3:11:47 PM Referred By: REFERRED SELF Confirmed By:Augustine Payton
[2023-12-04 15:22] LABS: Phosphorus 5.2 mg/dl (2.5-4.9)
[2023-12-04 15:28] LABS: Appearance Urine Clear (Clear); Bilirubin Urine Negative (Negative); Blood Urine Negative (Negative); Color Urine Yellow; Glucose Urine UA 3+ (Negative); Ketones Urine 4+ (Negative); Leukocyte Esterase Urine Negative (Negative); Nitrite Urine Negative (Negative); Protein Urine Negative (Negative); Specific Gravity Urine 1.041 (1.000-1.030); Urobilinogen Urine Negative (Negative); pH Urine 5.5 (4.5-7.5)
[2023-12-04] MEDS: SODIUM CHLOR 0.45% + 20MEQ KCL 20 MEQ/1,000 ML BAG IV SCH (15:51)
[2023-12-04 16:10] LABS: Amphetamines+Metham, Urine Pos (Neg); Barbiturates, Urine Neg (Neg); Benzodiazepine, Urine Neg (Neg); Cocaine, Urine Neg (Neg); MDMA (Ecstacy), Urine Pos (Neg); Marijuana, Urine Neg (Neg); Methadone, Urine Neg (Neg); Opiate, Urine Pos (Neg); Phencyclidine, Urine Neg (Neg)
--- NOTE | 2023-12-04 16:20 | History & Physical Report ---
Date of Service December 04, 2023 Assessment & Plan (1) DKA (diabetic ketoacidosis): Plan: -Admit to the PCU on tele and pulse oximetry -Currently hemodynamically stable, stable on RA, and non-toxic appearing -Presented to the ED with dehydration, hyperglycemia, nausea/vomiting, and tremors -Noted to be in DKA with hyperglycemia, metabolic acidosis, and + ketones in her urine -Likely due to binge drinking last night -VBG pH noted to be 3.0, also noted to have a pCO2 of 26 and pO2 WNL showing she is in respiratory compensation -Started on Insulin drip and NSS with 20 meq KCL >Potassium was stable at 4.5 prior to initiating insulin drip -Continue DKA protocol which includes adding dextrose to her IV fluids once her BSG falls to 250 or lower -Continue insulin drip until her AG is closed -Continue to monitor q4h BMP, electrolytes, and VBG -Can be transitioned to basal/bolus insulin once her gap is closed and she is eating consistently -Will need to be cautious with antiemetics as her QTC today was noted to be 532 -Clear liquid diet to start, Advance as tolerated -OOB for DVT PPX -AM CBC (2) Diabetes mellitus type 1: Plan: -See DKA plan (3) Elevated troponin I level: Plan: -Initial high sen trop elevated at 17.5 -Patient denies chest pain, no acute ST segment or T-wave changes on ECG -Likely due to demand from significant dehydration and sinus tachycardia in the 150's on arrival -Will repeat a 2 hour high sen trop now -Continue to monitor on tele Plan The patient was discussed with Dr. Walsh at the time of the admission History of Present Illness Chief Complaint: Nausea and vomiting Primary Care Provider: NO PCP Otto is a 23 year old female with a PMH significant for DMI with previous admissions for DKA, gastroparesis, and previous kidney stones who presented to the [facility] ED on 12/04/23 with complaints of nausea, vomiting, and tremors after drinking alcohol last night. In the ED she was noted to be tachycardic with HR int he 150's but otherwise stable. Labs were significant for a leukocytosis of 11 with neutrophile predominance of 9, VBG pH of 7.30 with pCO2 of 26, and pO2 WNL, glucose of 444, AG of 27, bicarb of 14, corrected sodium of 144, phos of 5.2, high sen trop of 17, beta HCG negative, UA with 3+ glucose and 4+ ketones, and urine drug screen positive for opiates, NDMA, and amphetamines. Chest xray was negative for acute findings. Prior to admission the patient was started on DKA protocol in the ED. At the time of the exam the patient was lying in bed in no acute distress. She states that she is currently tired but otherwise denies complaints at this time. She states that she went out drinking last night with her friends. This am she felt weak and foggy when she woke. She had multiple episodes of non-bloody emesis this am but denies abdominal pain and chest pain. She states that she accidentally took an extra dose of Wellbutrin this am when she was tired and confused. She was unsure if this caused some of her tremors she experiencing prior to arrival. She denies that she had any seizures and denies a previous hx of seizures. She denies taking any other substances besides alcohol last night. Please refer to Dr. Walsh's attestation for any changes to the treatment plan Allergies Allergy/AdvReac Type Severity Reaction Status Date / Time No Known Allergies Allergy Verified 12/04/23 15:07 Home Medications Medication Instructions Recorded Confirmed Type spironolactone 100 mg tablet 100 mg PO QAM 07/23/23 12/04/23 History acetaminophen 325 mg tablet 650 mg (2 x 325 mg) PO QID #120 08/18/23 12/04/23 Rx tabs bupropion HCl 300 mg 24 hr tablet, 300 mg PO QAM 12/04/23 12/04/23 History extended release insulin glargine 100 unit/mL 0 unit subcut PM 12/04/23 12/04/23 History subcutaneous solution lidocaine 5 % topical patch 0 patch transdermal QA 12/04/23 12/04/23 History Past Med/Surg History Medical History DKA (diabetic ketoacidosis) Gastroparesis Diabetes mellitus type 1 Surgical History No pertinent past surgical history Family History Other No pertinent family history Social History Smoking Status: Never smoker Tobacco Type: E-cigarettes / Vaping Second Hand Exposure: No; Do You Dip or Chew Tobacco: No; Hx Alcohol Use: Yes Alcohol type: hard liquor Hx Substance Use: No Preferred Language: Pakistani Communication Ability: Effective Production Miner Required: No Beliefs That Will Affect Care: None Current Living Situation: Alone Current Living Situation Comment: apartment with roommates Other Information That Helps Us Care for You: No Feels Safe at Home: Yes Safety Concerns: Feels Safe At This Time Assistive Devices: None Physical Exam Physical Exam: Physical Exam: General: In no acute distress, stated age, ill but non-toxic appearing HEENT: Normocephalic, atraumatic, no scleral icterus, pupils around round, symmetrical, and reactive to light, dry mucus membranes, trachea midline, no thyromegaly Chest/Pulm: No respiratory distress, symmetrical chest expansion, clear breath sounds throughout Cardiac: tachycardic rate, regular rhythm, no murmurs noted Abdomen: Negative for ascites and bruising, normoactive bowel sounds, soft, non-tender to palpation throughout Musculoskeletal: Symmetrical and without signs of acute trauma, upper and lower extremities with full ROM, no atrophy, spasticity, or flaccidity Extremities: Radial, dorsalis pedis, and posterior tibial pulses are intact and symmetrical, no edema noted in the BL LE's Skin: Warm, dry, no rashes , lesions, or scars noted Neuro: Alert and oriented to person, place, month, year, and president, no focal defects, no tremors noted Psych: No acute distress, calm and cooperative during the exam Results & Data Results & Data Vital Signs (Past 12 Hours) Vital Signs Temp Pulse Pulse Resp BP BP Pulse Ox 12/04/23 16:10 113 H 12/04/23 15:00 117 H 18 127/92 96 12/04/23 13:03 142 H 22 145/113 H 97 12/04/23 12:34 36.4 C L 150 H 18 150/105 H 96 O2 Del Method 12/04/23 16:10 12/04/23 15:00 Room Air 12/04/23 13:03 Room Air 12/04/23 12:34 Room Air Laboratory Results Abnormal lab results 12/04/23 12/04/23 12/04/23 Range/Units 12:55 13:08 14:10 WBC 11.68 H (4.8-10.8) K/ul Neut # (Auto) 9.87 H (1.40-6.50) K/uL VBG pH 7.30 L (7.36-7.41) VBG pCO2 26 L (38-50) mmHg Chloride 97 L (98-107) mmol/L Carbon Dioxide 14 L (21-32) mmol/L Anion Gap 27 H (3-11) Glucose 495 H* (70-99(Fasting)) mg/dl POC Glucose 444 H* (70-99) mg/dl Phosphorus 5.2 H (2.5-4.9) mg/dl Alkaline Phosphatase 127 H (34-104) U/L Troponin I High Sens 17.4 H (0-14) pg/ml Total Protein 8.4 H (6.0-8.3) gm/dl Albumin 5.5 H (3.4-5.0) gm/dl Ur Specific [place] (1.000-1.030) Urine Glucose (UA) (Negative) Urine Ketones (Negative) Salicylates < 3.0 L (3.0-30) mg/dl Urine Opiates Screen (Neg) Acetaminophen < 3 L (10-30) ug/ml U Amphetamin/Meth Scrn (Neg) MDMA (Ecstasy) Screen (Neg) 12/04/23 12/04/23 Range/Units 14:54 16:14 WBC (4.8-10.8) K/ul Neut # (Auto) (1.40-6.50) K/uL VBG pH (7.36-7.41) VBG pCO2 (38-50) mmHg Chloride (98-107) mmol/L Carbon Dioxide (21-32) mmol/L Anion Gap (3-11) Glucose (70-99(Fasting)) mg/dl POC Glucose 225 H (70-99) mg/dl Phosphorus (2.5-4.9) mg/dl Alkaline Phosphatase (34-104) U/L Troponin I High Sens (0-14) pg/ml Total Protein (6.0-8.3) gm/dl Albumin (3.4-5.0) gm/dl Ur Specific [place] 1.041 H (1.000-1.030) Urine Glucose (UA) 3+ H (Negative) Urine Ketones 4+ H (Negative) Salicylates (3.0-30) mg/dl Urine Opiates Screen Pos H (Neg) Acetaminophen (10-30) ug/ml U Amphetamin/Meth Scrn Pos H (Neg) MDMA (Ecstasy) Screen Pos H (Neg) Diagnostic Findings Chest X-Ray 12/04/23 13:21 XR chest 1V portable HISTORY: 23 years-old Female overdose drug overdose COMPARISON: 08/16/2023 TECHNIQUE: AP view of the chest FINDINGS: Cardiomediastinal and hilar silhouettes are within normal limits. No pneumothorax, pleural effusion or airspace consolidation. Mild right hemidiaphragmatic elevation. Bones appear grossly intact. IMPRESSION: No acute process. ACT 112: Negative or not required by law. The above report was generated using voice recognition software. It may contain grammatical, syntax or spelling errors. Electronically signed by: Dimitry Danielson M.D. 12/04/2023 2:04 PM ECG Additional Comments: Sinus tachycardia Low voltage QRS Abnormal ECG No previous ECGs available Confirmed by Augustine Payton ([id number]) on 12/04/2023 3:11:47 PM Code Status & VTE Plan Code Status Full code VTE Prophylaxis Plan VTE Prophylaxis will be ordered: Yes Supervising Physician Co-Signing Physician Notes I personally saw and examined the patient. I verified all king points and agree with Ayo Joseph PA-C with the following exceptions and/or additions: 23 year old female with T1DM who presents to the ER with fatigue and confusion. Labs confirmed DKA in the ER and she was appropriately fluid resuscitated and started on an insulin IV drip. O/E A&Ox3, HS RRR, no murmurs, Chest CTAB, Abdo SNT, no CVA tenderness A/P DKA - suspect anion gap will close on next set of labs and can be transitioned back to her basal dosing (12 units BID) at that time. No clear reason other than alcohol use which she may be underestimating as a cause of her DKA. No infectious etiology suspected on CXR, UA, history of exam. PG Care Time/CCT Total # of Minutes Spent Total Time Spent with Patient: Total time spent is greater than 50% in coordination of care (as documented) at patient's floor/unit and/or counseling patient: Coding [place] [address] INT INP/OBS CARE 375MIN Patient Type Established Medical Decision Making High Complexity Diagnoses DKA (diabetic ketoacidosis) E11.10 Diabetes mellitus type 1 E10.9 Elevated troponin I level R79.89
[2023-12-04 16:23] LABS: Adenovirus PCR Not Detected (NotDetected); Bordetella parapertussis PCR Not Detected (NotDetected); Bordetella pertussis PCR Not Detected (NotDetected); Chlamydia pneumoniae PCR Not Detected (NotDetected); Coronavirus 229E PCR Not Detected (NotDetected); Coronavirus CoV-2 (COVID19)PCR Not Detected (NotDetected); Coronavirus HKU1 PCR Not Detected (NotDetected); Coronavirus NL63 PCR Not Detected (NotDetected); Coronavirus OC43PCR Not Detected (NotDetected); Human Metapneumovirus PCR Not Detected (NotDetected); Influenza A PCR Not Detected (NotDetected); Influenza B PCR Not Detected (NotDetected); Mycoplasma pneumoniae PCR Not Detected (NotDetected); Parainfluenza Virus 1 PCR Not Detected (NotDetected); Parainfluenza Virus 2 PCR Not Detected (NotDetected); Parainfluenza Virus 3 PCR Not Detected (NotDetected); Parainfluenza Virus 4 PCR Not Detected (NotDetected); Respiratory Syncytial VirusPCR Not Detected (NotDetected); Rhinovirus/Enterovirus PCR Not Detected (NotDetected)
[2023-12-04] MEDS ORDERED: PHARMACY GLYCEMIC MGMT CONSULT PRN (16:44)
[2023-12-04] MEDS: DKA GOAL RANGE 150-250 mg/dl ONE (17:25)
--- NOTE | 2023-12-04 17:57 | Pharmacy Report ---
Pharmacy Glycemic Short Note 2 - Date of Service December 04, 2023 - Glycemic Short BSG Results (Last 24 hours): 12/04/23 12/04/23 12/04/23 12:55 13:08 16:14 Glucose 495 H* POC Glucose 444 H* 225 H 12/04/23 17:17 Glucose POC Glucose 213 H OUTPATIENT ANTIDIABETIC REGIMEN: * Lantus 10 units daily ASSESSMENT: * 23 year old admitted with DKA, type 1 diabetic. Insulin drip started in the ER per DKA protocol. Fluids adjusted based upon protocol. Plan to continue insulin drip until labs normalize. PLAN FOR INPATIENT GLYCEMIC CONTROL: * Continue insulin drip per DKA protocol / goal 150-250
[2023-12-04 18:56] LABS: BUN Creatinine Ratio 14.3 (10-20); Calcium 8.4 mg/dl (8.6-10.3); Creatinine Clr Calc Pharmacy 99.7 ml/min; Est GFR (African American) 142.5 ml/min; Magnesium 1.9 mg/dl (1.7-2.4); Phosphorus 2.6 mg/dl (2.5-4.9); Potassium 4.3 mmol/L (3.5-5.1)
[2023-12-04] MEDS: D5W AND 1/2NSS + 20MEQ KCL 20 MEQ/1,000 ML BAG IV SCH (19:51)
[2023-12-04] MEDS: INSULIN ASPART PER UNIT CHARGE SC SCH (20:03)
[2023-12-04] MEDS: LANTUS PER UNIT CHARGE SC ONE (21:22)
[2023-12-05 00:05] LABS: Anion Gap 7 (3-11); BUN Creatinine Ratio 14.3 (10-20); Blood Urea Nitrogen 8 mg/dl (6-23); Carbon Dioxide 20 mmol/L (21-32); Chloride 108 mmol/L (98-107); Creatinine Clr Calc Pharmacy 124.6 ml/min; Est GFR (African American) > 150.0 ml/min; Est GFR (Non-African American) 132.4 ml/min; Glucose 217 mg/dl (70-99(Fasting)); Phosphorus 2.8 mg/dl (2.5-4.9); Potassium 3.6 mmol/L (3.5-5.1); Sodium 135 mmol/L (136-145)
[2023-12-05] MEDS: SODIUM CHLOR 0.45% + 20MEQ KCL 20 MEQ/1,000 ML BAG IV SCH (02:06)
[2023-12-05] MEDS: INSULIN ASPART PER UNIT CHARGE SC SCH (02:14)
[2023-12-05 03:00] LABS: Anion Gap 10 (3-11); BUN Creatinine Ratio 14.8 (10-20); Blood Urea Nitrogen 8 mg/dl (6-23); Calcium 8.3 mg/dl (8.6-10.3); Carbon Dioxide 19 mmol/L (21-32); Chloride 105 mmol/L (98-107); Creatinine Clr Calc Pharmacy 129.2 ml/min; Est GFR (African American) > 150.0 ml/min; Est GFR (Non-African American) 133.9 ml/min; Glucose 174 mg/dl (70-99(Fasting)); Phosphorus 3.1 mg/dl (2.5-4.9); Potassium 3.5 mmol/L (3.5-5.1); Sodium 134 mmol/L (136-145)
[2023-12-05 04:19] LABS: Basophils # (auto) 0.04 K/uL (0.00-0.20); Basophils % (auto) 0.5 %; Eosinophils # (auto) 0.05 K/uL (0.00-0.50); Eosinophils % (auto) 0.6 %; Hematocrit (blood only) 36.6 % (37.0-47.0); Hemoglobin 12.4 g/dl (12.0-16.0); Immature Granulocytes # (auto) 0.03 K/uL (0.01-0.20); Immature Granulocytes % (auto) 0.4 %; Lymphocytes # (auto) 3.19 K/uL (1.20-3.40); Lymphocytes % (auto) 37.2 %; Mean Corpuscular Hemoglobin 30.7 pg (25.0-34.0); Mean Corpuscular Hgb Conc 33.9 g/dL (32.0-36.0); Mean Corpuscular Volume 90.6 fL (80.0-100.0); Mean Platelet Volume 9.5 fL (9.4-12.4); Monocytes % (auto) 10.5 %; Neutrophils # (auto) 4.36 K/uL (1.40-6.50); Neutrophils % (auto) 50.8 %; Platelet Count 236 K/uL (130-400); RDW Coefficient of Variation 12.8 % (11.5-14.5); Red Blood Count 4.04 M/uL (4.20-5.40); White Blood Count 8.57 K/ul (4.8-10.8)
[2023-12-05 07:23] LABS: Estimated Average Glucose 390 mg/dl; Hemoglobin A1C 15.2 % (4.5-5.6)
[2023-12-05 07:37] LABS: Anion Gap 9 (3-11); Blood Urea Nitrogen 9 mg/dl (6-23); Calcium 8.4 mg/dl (8.6-10.3); Carbon Dioxide 19 mmol/L (21-32); Chloride 106 mmol/L (98-107); Creatinine Clr Calc Pharmacy 139.6 ml/min; Est GFR (African American) > 150.0 ml/min; Est GFR (Non-African American) 137.4 ml/min; Glucose 140 mg/dl (70-99(Fasting)); Magnesium 1.9 mg/dl (1.7-2.4); Phosphorus 3.2 mg/dl (2.5-4.9); Potassium 3.6 mmol/L (3.5-5.1); Sodium 134 mmol/L (136-145)
[2023-12-05] MEDS: LANTUS PER UNIT CHARGE SC SCH (08:38)
[2023-12-05] MEDS: buPROPion XL 300 MG TABCR PO SCH (10:39)
--- NOTE | 2023-12-05 15:12 | Electrocardiogram Report ---
Test Reason : Blood Pressure : / mmHG Vent. Rate : 093 BPM Atrial Rate : 093 BPM P-R Int : 146 ms QRS Dur : 076 ms QT Int : 386 ms P-R-T Axes : 040 008 028 degrees QTc Int : 479 ms Normal sinus rhythm Possible Left atrial enlargement Low voltage QRS Poor R wave progression, consider anterior [place] vs. lead placement vs. LVH Abnormal ECG When compared with ECG of 04-DEC-2023 12:43, Vent. rate has decreased BY [address] no longer elevated in Inferior leads ST no longer depressed in Lateral leads Confirmed by Sunil Del Toro ([id number]) on 12/05/2023 3:11:42 PM Referred By: REFERRED SELF Confirmed By:Sunil Del Toro
--- NOTE | 2023-12-05 17:55 | Discharge Summary ---
Date of Service December 05, 2023 Admission HPI Per Admitting Provider Otto is a 23 year old female with a PMH significant for DMI with previous admissions for DKA, gastroparesis, and previous kidney stones who presented to the [facility] ED on 12/04/23 with complaints of nausea, vomiting, and tremors after drinking alcohol last night. In the ED she was noted to be tachycardic with HR int he 150's but otherwise stable. Labs were significant for a leukocytosis of 11 with neutrophile predominance of 9, VBG pH of 7.30 with pCO2 of 26, and pO2 WNL, glucose of 444, AG of 27, bicarb of 14, corrected sodium of 144, phos of 5.2, high sen trop of 17, beta HCG negative, UA with 3+ glucose and 4+ ketones, and urine drug screen positive for opiates, NDMA, and amphetamines. Chest xray was negative for acute findings. Prior to admission the patient was started on DKA protocol in the ED. At the time of the exam the patient was lying in bed in no acute distress. She states that she is currently tired but otherwise denies complaints at this time. She states that she went out drinking last night with her friends. This am she felt weak and foggy when she woke. She had multiple episodes of non-bloody emesis this am but denies abdominal pain and chest pain. She states that she accidentally took an extra dose of Wellbutrin this am when she was tired and confused. She was unsure if this caused some of her tremors she experiencing prior to arrival. She denies that she had any seizures and denies a previous hx of seizures. She denies taking any other substances besides alcohol last night. Principal Diagnosis Diabetic ketoacidosis Discharge Exam PHYSICAL EXAMINATION Last 24h vital signs reviewed, see documentation in flowsheet General: comfortable appearing, no distress HEENT: Normocephalic, atraumatic, pupils round and equal, sclerae anicteric, no conjunctival injection, moist mucus membranes Lungs: Normal respiratory effort. Clear to auscultation bilaterally. No RRW Heart: Regular rate and rhythm, no murmurs. No JVD Abdomen: Soft, nontender, nondistended. Bowel sounds present. Extremities: Warm, dry, well-perfused. No extremity edema. Neuro: Alert and oriented x 4, face symmetric, moves 4 extremities well Psych: Normal affect and behavior Discharge Data Allergies Allergy/AdvReac Type Severity Reaction Status Date / Time No Known Allergies Allergy Verified 12/04/23 15:07 Consultations 12/04/23 14:48 ED Decision to Admit Stat Ordered Studies 12/05/23 02:26 12/05/23 06:44 Chest X-Ray 12/04/23 13:21 XR chest 1V portable HISTORY: 23 years-old Female overdose drug overdose COMPARISON: 08/16/2023 TECHNIQUE: AP view of the chest FINDINGS: Cardiomediastinal and hilar silhouettes are within normal limits. No pneumothorax, pleural effusion or airspace consolidation. Mild right hemidiaphragmatic elevation. Bones appear grossly intact. IMPRESSION: No acute process. ACT 112: Negative or not required by law. The above report was generated using voice recognition software. It may contain grammatical, syntax or spelling errors. Electronically signed by: Dimitry Danielson M.D. 12/04/2023 2:04 PM Hospital Course (1) DKA (diabetic ketoacidosis): -Presented to the ED with dehydration, hyperglycemia, nausea/vomiting, and tremors -Noted to be in DKA with hyperglycemia, metabolic acidosis, and + ketones in her urine -Likely due to binge drinking last night, stress, recently poorly controlled BG (A1c 15) related to skipping some of her insulin doses related to feeling "burned out" Treated with IV fluids, insulin drip, electrolyte replacement and resolved Tolerated transition to SQ insulin and reasonably well controlled today and eating well Counseled re: importance of taking her insulin to her overall health, avoiding too much alcohol which can trigger senior health educator met with her and she will transition her long acting insulin to QAM (instead of bid) to give herself a break from one of the injections -interested in patch if that can be approved by her insurance / affordable She has good follow up with her PCP and heart specialist at [facility] in [place] (2) Diabetes mellitus type 1: -See DKA plan (3) Elevated troponin I level: mildly elevated HS-troponin to peak of 72 then downtrended consistent with demand ischemia setting of DKA metabolic disturbances, sinus tachycardia -Patient denies chest pain, no acute ST segment or T-wave changes on ECG prolonged QTC on admitting EKG resolved on repeat EKG today, was related to metabolic disturbance Plan Utox was abnormal - due to false positive from bupropion. denies any street drugs. Total Time Total Time Spent Total Time Spent (In Minutes): 25 minutes Discharge Plan Discharge Items Patient Disposition: Home - Self-Care Reason For Visit: DKA Discharge Diagnosis: Diabetic ketoacidosis Activity: Resume your previous activity Non-emergency contact: Primary Care Provider Call non-emergency contact if: you have any medication questions and your symptoms worsen Follow-up/Referrals: PCP,NO [Primary Care Provider] - Diet: Carb Count or DM1 Addtl Attending Provider Instructions: You were treated for DKA Recently high blood sugars, stress, alcohol were contributing factors Try the changes recommended by the diabetes nurse below, continue your Toujeo and humalog Follow up with primary care and 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 - If fasting blood sugar levels are above 150, increase dose by 2 units every 4- 5 days. - Stop increasing dose once blood sugar levels are at/below 150. - To help with Humalog dosing, you may consider looking into the CeQur. CeQur is a 3-day wearable insulin patch that provides a convenient, discreet, and injection-free way for people with diabetes to deliver mealtime and correction boluses thru the click of a button. - Because diabetes takes a lot of work, would recommend trying to find a good support system to help- friends, educators, providers, a psychologist, etc. to help with and talk thru the daily struggles of living with a lifelong condition. - If you have any questions, please call our diabetes office at [phone]. Take Care! Pending Studies at Discharge: No Stand-Alone Forms: My DrDoctor, Work/School Release, Smoking Cessation Medications and DC Order Prescriptions: Continued acetaminophen 325 mg Tablet 650 mg PO QID Qty: 120 0RF Rx Instructions: Unable to verify OTC medication with patient/family at this date/time. Original Directions: 650mg by mouth four times daily spironolactone 100 mg Tablet 100 mg PO QAM bupropion HCl 300 mg Tablet Extended Release 24 Hr 300 mg PO QAM insulin glargine 100 unit/mL solution 0 unit subcut PM Rx Instructions: Per pharmacy, patient never picked up this medication, has requested it to be filled but never picked it up. Original Directions: 10 units once every evening lidocaine 5 % adhesive patch,medicated 0 patch transdermal QAM Rx Instructions: Per pharmacy, patient never picked up this medication, has requested it to be filled but never picked it up. Original Directions: 1 patch every morning Discharge Orders: Discharge Order (Routine); Ordered 12/05/23 Ordered By: Lauren Godwin Admission Data Admit Date/Time: 12/04/23 16:19 Attending Provider: Lauren Godwin Admit Provider: Gareth Walsh Primary Care Provider: PCP,NO Other Providers: Gareth Walsh Other Interventions: Discharge Summary Assessment (RN) Last Done: 12/05/23 14:37 Coding Level of Care Code 11043 IN/OBS DISCH 30 MIN/LESS Diagnoses DKA (diabetic ketoacidosis) E10.10 Diabetes mellitus complication detail: without coma Diabetes mellitus type: type 1 Diabetes mellitus type 1 E10.10 Diabetes mellitus complication detail: without coma Diabetes mellitus complication status: with ketoacidosis Elevated troponin I level R79.89
[2023-12-09 14:37] LABS: Amphetamine Urine, Confirm NEGATIVE ng/mL (<250); Codeine Urine NEGATIVE ng/mL (<50); Hydrocodone Urine 3120 ng/mL (<50); Hydromor Urine NEGATIVE ng/mL (<50); MDA negative; MDEA negative; MDMA (Ecstasy) Urine, Confirm negative; Methamphetamine, Ur Confirm NEGATIVE ng/mL (<250); Morphine Urine NEGATIVE ng/mL (<50); Norhydrocodone Conf Ur 3430 ng/mL (<50); Noroxycodone Urine 3210 ng/mL (<50); Oxycodone Urine 2130 ng/mL (<50); Oxymorph Urine NEGATIVE ng/mL (<50)
== END 2023-12-05 15:13 | disposition home or self-care (01) | DRG 638 ==
LOC: ED 12:21 → 4W 16:19 → SUATTDRO 16:19 → INTOOBSV 16:19 → 4W 18:25